=== PATIENT | female | born 1935 ===

== ENCOUNTER 2025-10-22 14:07 | Outpatient (AMB) | payer OTHER, SELFPAY ==
--- OUTSIDE RECORDS SUMMARY | 2025-10-22 13:33 | XMS_ITS ---
Author Organization [facility] ADVANCE DIRECTIVES Directive Description Date Supporting Docu ment(s) Advance care order Do Not Resuscitate O rder (DNR) Advance directive 10/30/2024 Kathy jennings Living Will.pdf (Kathy Valverde Living Will.pdf) SOCIAL HISTORY Social History Observation Description Sex Unknown Current Smoking Status Tobacco smoking c onsumption unknown
[2025-10-22 14:22] VITALS: BMI 25.3
--- NOTE | 2025-10-22 14:22 | A.PHYSOV ---
Vital Signs 10/22/25 14:22 Height 5 ft 4.5 in Weight 150 lb BMI 25.3 Intake Visit Reasons: Bilateral shoulder injections Intake Note: Patient is a 89 year old female here today for bilateral shoulder injections. Manager Multicultural Required: No Allergies No Known Allergies Allergy (Verified 10/22/25 14:25) [facility] Surgical History H/O tubal ligation Social History Alcohol intake: current Alcohol intake frequency: holidays/special occasions only Patient Tobacco Use Status: Never used Tobacco Physical Exam Vital Signs: BMI result Body Mass Index 25.3 Office Procedures AMB Shoulder Injection AMB Shoulder Injection Procedure Details: Bilateral Glenohumeral joint injection: The patient was educated about risks, complications and benefits including but not limited to increased serum glucose, infection, nerve damage, bleeding, tendon/ligament damage and pain. We agree with a glenohumeral injection is the next best step in the treatment plan. Verbal consent was obtained. Using aseptic technique, the skin was cleansed with Betadine. Ethyl chloride was used to desensitize the skin. Using a posterior approach on the left, 40 mg of Kenalog and 3 mL 2% lidocaine were injected using a 25-gauge inch and a half needle into the joint. The patient tolerated the procedure well without immediate complication. Postinjection instructions were given. The procedure was repeated on the right. Shoulder Injection - : Bilateral All charges added?: Procedure code (CPT) selection complete Office Meds Kenalog 40 mg/mL suspension for injection Performing Provider: PERI Robison Performing Location: [facility] Administered by: PERI Robison on 10/22/25 17:20 Dose Route Admin Location Dispensed Lot Number Expiration Date [facility] Water [employer] 40 mg intra-articular 1 mL [address]-9 [employer] Total Dispensed Waste 1 mL 0 % lidocaine (PF) 20 mg/mL (2 %) injection solution Performing Provider: PERI Robison [facility] Administered by: PERI Robison on 10/22/25 17:20 Dose Route Admin Location Dispensed Lot Number Expiration Date [facility] Water [employer] 60 mg intra-articular 5 mL [id number] [employer] Total Dispensed Waste 5 mL 40 % Assessment & Plan Assessment & Plan (1) Osteoarthritis of bilateral glenohumeral joints: Code(s): M19.011 - Primary osteoarthritis, right shoulder; M19.012 - Primary osteoarthritis, left shoulder Category: Medical Plan Ms. Chavez is a 89-year-old female seen in evaluation today for bilateral glenohumeral joint osteoarthritis. Today she consented to bilateral glenohumeral joint injection. She was given post-injection instructions, recommend: Moist heat compresses for 15 minutes up to 5 times daily. Continue her home exercise plan and medications as prescribed. Follow-up with our office in 3 months as needed. Thank you for allowing me to participate in the care of your patient. Orders: Orders AMB Shoulder Injection Today M19.011 - Primary osteoarthritis, right shoulder, M19.012 - Primary osteoarthritis, left shoulder Coding Level of Care Code Procedure Only Diagnoses Osteoarthritis of bilateral glenohumeral joints M19.011; M19.012 CPT Codes AMB Shoulder Injection - Hip/Bursa Injection - : Bilateral ([id number])
--- OUTSIDE RECORDS SUMMARY | 2025-10-22 18:54 | XMS_ITS | Continuity of Care Document ---
Author Organization [facility], Main Office Address [address] [place] [address] Care Team Providers Care Deckhand Maintenance Name Role Phone JONAH ABDULLAHI Lobby Attendant [facility] Director ANSHUL GARCIA Equipment Installer SUKHJINDER OJEDA Primary Care Provider Assessment No assessment recorded. Plan of Treatment Reminders Order Date Submit Date Provider Last Modified By Organization Details Last Modified Time Details Appointments None recorded. Lab None recorded. Referral None recorded. Procedures None recorded. Surgeries None recorded. Imaging None recorded. Medication Orders amlodipine 5 mg tablet 2024 025 [facility] #[id number], [address], [place], [address], 14:43:19 lisinopril 40 mg tablet 2024 025 [facility] #[id number], [address], [place], [address], 14:43:18 metoprolol succinate ER 25 mg tablet,exte nded release 24 hr 2024 025 [facility] #[id number], [address], [place], [address], 14:43:20 Patient TargetsNo targets recorded. Patient Instructions Encounter Date Encounter Id Patient Instructions Last Modified By Organization Details Last Modified Time 10/06/2025 [id number] high blood pressure: care instructions Not available 10/06/2025 14:43:15 learning about high blood pressure Not available 10/06/2025 14:43:15 atrial fibrillation: care instructions Not available 10/06/2025 14:43:15 medical record request* [email or web address] Not available 10/07/2025 10:06:03 Reason for Referral None Reported. Results Created Date Observation Date Name Description Value Unit Range Abnormal Flag Note LastModifiedBy Organization Detail LastModifiedTime 10/16/2010/14/2025 XR, hip + pelvi s, unila teral , 2 or 3 view AP pelvis and right hip 3 views dated 2024. Compar pranay films are from June 30, 2025. HISTOR Y: Right hip pain. FINDIN GS: This examin ation shows no eviden ce of fractu re or disloc ation. There is loss of joint space in both hips with minima l subcho ndral sclero sis and osteop hyte format ion. IMPRES ROSA: Degene rative change s. No eviden ce of fractu re or disloc ation. Thank you for allowi ng me to partic ipate in the care of this patien t. WSN: [id number] Orderi ng Physic igor: Divya Guillen Dictat ed By: Ge Cid MD Dictat ed Date/T gaby: 9:51 am Review ed By: Ge Cid MD Signed By: Ge Cid MD Signed Date/T gaby: 9:51 am Transc ribed By: AYDEE Transc ribed Date/T gaby: 9:51 am Patien t Class: Outpat ient [email or web address] (Outpt Imaging) [address], [place], [address], 10/20/2025 09:18:34 10/16/20 25 10/14/2025 XR, hip + pelvi s, unila teral , 2 or 3 view No observ ation record ed. [email or web address] [facility] [address] [place], [address], 10/20/2025 09:18:46 Result Notes None recorded. Problems Name Problem SNOMED Code Status Onset Date Resolution Date Notes Provider Name and Address Organization Details Recorded Time Respirat ory crackles 38785294 Completed 10/05/2016 Willow cunningham [facility] 6 11:47:07 Influenz a 8079566 Completed 10/05/2016 [facility] 6 11:47:10 Cough 82548248 Completed 10/05/2016 EMERSON Escobar [facility] 6 11:06:03 Otitis media 38098149 Completed 10/05/2016 EMERSON Escobar [facility] 6 11:06:08 Sinusiti s 09780524 Completed 10/05/2016 EMERSON Escobar [facility] 6 11:05:57 Diarrhea 75072167 Completed 10/05/2016 EMERSON Escobar [facility] 6 11:06:12 Stomach cramps 20167763 Completed 10/05/2016 EMERSON Escobar [facility] 6 11:06:16 Clostrid ium difficil e colitis 229260009 Completed 10/06/2017 Willow cunningham [facility] 7 11:31:32 Abdomina l pain 23063663 Completed 10/06/2017 EMERSON Escobar [facility] 7 11:04:19 Clostrid ioides difficil e infectio n 695971609 Completed 07/22/2024 SUKHJINDER OJEDA MD [address], [place], [address] , [facility] 4 07:25:47 Hypercho lesterol emia 56862197 Completed 08/04/2021 Willow LaoSelena cunningham [facility] 1 14:08:56 Advance care planning Active Not Available [facility] 3 13:25:11 Acute secretor y otitis media 174182566 Completed 200805/27/2014 IMPRESSI ON: RIGHT TM ALSO WITH SINUSITI S; RECORDED 12/11/19 09 1:21PM BY QUAN ADAMSATI ON/ADDEN DUM Not Available [facility] 4 15:10:13 General examinat ion of patient Completed 200805/27/2014 IMPRESSI ON: PAP, MAMMO AND COLONOSC OPY UTD AND NL, EXERCISE S DAILY; RECORDED 12/11/19 09 1:21PM BY QUAN ADAMSATI ON/ADDEN DUM Not Available [facility] 4 15:10:14 Malaise and fatigue 183260152 Completed 200805/27/2014 RECORDED 12/11/19 09 2:16PM BY QUAN CHAPMANATI ON/ADDEN DUM Not Available [facility] 4 15:10:14 Acute secretor y otitis media 011727913 Completed 200806/16/2014 IMPRESSI ON: RIGHT TM ALSO WITH SINUSITI S; RECORDED 12/11/19 09 1:21PM BY QUAN ADAMSATI ON/ADDEN DUM Not Available [facility] 4 07:01:51 General examinat ion of patient Completed 200806/16/2014 IMPRESSI ON: PAP, MAMMO AND COLONOSC OPY UTD AND NL, EXERCISE S DAILY; RECORDED 12/11/19 09 1:21PM BY QUAN ADAMSATI ON/ADDEN DUM Not Available [facility] 4 07:01:51 Malaise and fatigue 311711364 Completed 200806/16/2014 RECORDED 12/11/19 09 2:16PM BY QUAN CHAPMANATI ON/ADDEN DUM Not Available [facility] 4 07:01:51 Screenin g for malignan t neoplasm of colon Completed 200805/27/2014 RECORDED 06/10/20 09 2:02PM BY EMERSON BROCK, ANNOTATI ON/ADDEN DUM Not Available [facility] 4 15:10:15 Screenin g for malignan t neoplasm of colon Completed 200806/16/2014 RECORDED 06/10/20 09 2:02PM BY EMERSON BROCK, ANNOTATI ON/ADDEN DUM Not Available [facility] 4 07:01:51 Active or passive immuniza tion Completed 200905/27/2014 RECORDED 11/12/19 10 1:42PM BY WILLOW Ordonez MD, OFFICE VISIT Not Available [facility] 4 15:10:14 Active or passive immuniza tion Completed 200906/16/2014 RECORDED 11/12/19 10 1:42PM BY WILLOW Ordonez MD, OFFICE VISIT Not Available [facility] 4 07:01:51 Influenz a vaccine needed [id number] 06 Completed 200905/27/2014 DATE: 07/28/20 10; RECORDED 11/12/19 13 11:19AM BY BILLY ESCOBAR ON/ADDEN DUM EMERSON Escobar, [facility] 6 11:05:45 Administ ration of viral vaccine Completed 200905/27/2014 DATE: 07/28/20 10; RECORDED 11/12/19 13 11:20AM BY BILLY ESCOBAR ON/ADDEN DUM Not Available [facility] 4 15:10:14 Influenz a vaccine needed 16000728401 06 Completed 200906/16/2014 DATE: 07/28/20 10; RECORDED 11/12/19 13 11:19AM BY BILLY ESCOBAR ON/ADDEN DUM EMERSON Escobar, [facility] 6 11:05:45 Administ ration of viral vaccine Completed 200906/16/2014 DATE: 07/28/20 10; RECORDED 11/12/19 13 11:20AM BY BILLY ESCOBAR ON/ADDEN DUM Not Available [facility] 4 07:01:51 Screenin g for malignan t neoplasm of breast Completed 201205/27/2014 RECORDED 11/12/19 13 11:19AM BY BILLY ESCOBAR ON/ADDEN DUM EMERSON Escobar, [facility] 7 11:04:35 Elevated blood-pr essure reading without diagnosi s of hyperten rosa 636191004 Completed 201205/27/2014 RECORDED 11/12/19 13 11:19AM BY BILLY ESCOBAR ON/ADDEN DUM Not Available [facility] 4 15:10:14 Essentia l hyperten rosa 07164085 Completed 201205/27/2014 RECORDED 11/12/19 13 11:19AM BY BILLY ESCOBAR ON/ADDEN DUM EMERSON Ibanez, [facility] 0 10:01:52 Adult health examinat ion Completed 201205/27/2014 IMPRESSI ON: PAP AND MAMMOT UTD, RESTART EXERCISE LOWER PORTIONS ; RECORDED 11/12/19 13 11:19AM BY BILLY ESCOBAR ON/ADDEN DUM EMERSON Escobar, [facility] 6 11:05:52 Screenin g for malignan t neoplasm of breast Completed 201206/16/2014 RECORDED 11/12/19 13 11:19AM BY BILLY ESCOBAR ON/ADDEN DUM EMERSON Escobar, [facility] 7 11:04:35 Elevated blood-pr essure reading without diagnosi s of hyperten rosa 792298419 Completed 201206/16/2014 RECORDED 11/12/19 13 11:19AM BY BILLY ESCOBAR ON/ADDEN DUM Not Available [facility] 4 07:01:51 Spontane ous ecchymos is 879700722 Completed 201205/27/2014 RECORDED 10/23/20 13 11:13AM BY GIOVANY DANNIE, [place], ANNOTATI ON/ADDEN DUM Not Available [facility] 4 15:10:13 Closed fracture of foot 882014173 Completed 201205/27/2014 IMPRESSI ON: WITH WALKING, CONTINUE WSEARING WALKING BOOT; RECORDED 10/23/20 13 11:13AM BY GIOVANY PANDEY MA, ANNOTATI ON/ADDEN DUM Not Available [facility] 4 15:10:14 Administ ration of tetanus vaccine Completed 201205/27/2014 RECORDED 10/23/20 13 11:13AM BY GIOVANY PANDEY [place], ANNOTATI ON/ADDEN DUM Not Available [facility] 4 15:10:15 Joint pain in ankle and foot Completed 201205/27/2014 RECORDED 10/23/20 13 11:13AM BY GIOVANY PANDEY MA, ANNOTATI ON/ADDEN DUM Not Available [facility] 4 15:10:15 Rosacea 087389038 Completed 201205/27/2014 RECORDED 10/23/20 13 11:13AM BY GIOVANY PANDEY [place], ANNOTATI ON/ADDEN DUM EMERSON Ibanez [place] - [facility] 0 10:02:02 Adult health examinat ion Completed 201210/05/2016 IMPRESSI ON: PAP, MAMMO AND COLONOSC OPY UTD AND ALL NL, PT IS ACITVE , EXERCISE S AND FEELS WELL.IS ON CALCIUM AND VITAMIN D; RECORDED 10/23/20 13 12:06PM BY WILLOW Ordonez MD, OFFICE VISIT EMERSON Escobar PA Louann [facility] 6 11:05:52 Spontane ous ecchymos is [id number] Completed 201206/16/2014 RECORDED 10/23/20 13 11:13AM BY GIOVANY PANDEY MA, ANNOTATI ON/ADDEN DUM Not Available [facility] 4 07:01:51 Closed fracture of foot 216828007 Completed 201206/16/2014 IMPRESSI ON: WITH WALKING, CONTINUE WSEARING WALKING BOOT; RECORDED 10/23/20 13 11:13AM BY GIOVANY PANDEY MA, ANNOTATI ON/ADDEN DUM Not Available [facility] 4 07:01:51 Administ ration of tetanus vaccine Completed 201206/16/2014 RECORDED 10/23/20 13 11:13AM BY GIOVANY PANDEY MA, ANNOTATI ON/ADDEN DUM Not Available [facility] 4 07:01:51 Joint pain in ankle and foot Completed 201206/16/2014 RECORDED 10/23/20 13 11:13AM BY GIOVANY PANDEY MA, ANNOTATI ON/ADDEN DUM Not Available [facility] 4 07:01:51 Portillo [id number] Completed 201206/16/2014 RECORDED 10/23/20 13 11:13AM BY GIOVANY PANDEY MA, ANNOTATI ON/ADDEN DUM EMERSON Ibanez [facility] 0 10:02:02 Patient status finding [id number] Completed 201310/05/2016 RECORDED 04/03/20 14 11:48AM BY CLAIRE BILLY, OFFICE VISIT EMERSON Escobar [facility] 6 11:05:41 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 e 801140165 Completed 201310/06/2017 IMPRESSI ON: ON ACTONEL, VIT D AND CALCIUM CONTINUE ; RECORDED 04/03/20 14 11:42AM BY CLAIRE BILLY, OFFICE VISIT Willow cunningham [facility] 7 11:32:01 Essentia l hyperten rosa 10755356 Active 2013 Not Available [facility] 3 13:25:11 Influenz a vaccine needed 07645351941 06 Completed 201310/05/2016 RECORDED 04/03/20 14 11:42AM BY CLAIRE BILLY, OFFICE VISIT EMERSON Escobar [facility] 6 11:05:45 Herpes zoster 0167933 Completed 201304/02/2025 SUKHJINDER OJEDA MD [address], [facility] [place], [address] , [facility] 5 07:12:10 Pure hypercho lesterol emia 702382532 Completed 201310/06/2017 IMPRESSI ON: CHECK FASTING; RECORDED 04/03/20 14 11:42AM BY CLAIRE BILLY, OFFICE VISIT Willow cunningham [facility] 7 11:31:28 Screenin g for malignan t neoplasm of breast Completed 201310/06/2017 RECORDED 04/03/20 14 11:42AM BY CLAIRE BILLY, OFFICE VISIT EMERSON Escobar, [facility] 7 11:04:35 Rosacea 520867320 Active 2013 Not Available [facility] 3 13:25:10 Adult health examinat ion Completed 201306/16/2014 IMPRESSI ON: PAP, MAMMO AND COLONOSC OPY UTD AND ALL NL, PT IS ACITVE , EXERCISE S AND FEELS WELL.IS ON CALCIUM AND VITAMIN D; RECORDED 04/03/20 14 11:38AM BY BILLY ESCOBAR ON/ADDEN DUM EMERSON Escobar, [facility] 6 11:05:52 Advance directiv e discusse d with patient 483390115 Completed 201910/26/2020 EMERSON Ibanez, [facility] 0 10:02:08 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 Not Available [facility] 3 13:25:10 Chronic kidney disease stage 3 440728811 Completed 202008/04/2021 Willow cunningham, [facility] 1 14:09:00 Atrial fibrilla tion 56254798 Active 2021 Not Available [facility] 3 13:25:10 Hyperten rosa monitori ng status 605155620 Active 2021 [facility] - active Not Available [facility] 3 13:25:10 COVID-19 749512154 Completed 202101/25/2024 SUKHJINDER OJEDA MD [address], [place], [address] , [facility] 4 07:21:29 Osteopen ia 437136645 Active 2024 SUKHJINDER OJEDA MD [address], [place], [address] , [facility] 5 20:07:29 Chronic low back pain 795854677 Active 2024 Lenny Diaz PA-C [address], [place], [address] , [facility] 5 12:38:53 Problem Notes None recorded. Procedures Surgical History Date Name Laterality Status Provider Name and Address Organization Details Recorded Time 5 Most Recent Mammogram completed Naomi Sharma [facility] 05/06/2025 13:49:19 5 Mammogram screening completed Naomi Sharma [facility] 05/06/2025 13:48:36 5 Advanced Care Planning completed SUKHJINDER OJEDA MD [address], [place], [address], [facility] 04/02/2025 07:10:42 4 Mammogram Diagnostic Bilateral completed Carola Hannon [facility] 03/26/2024 15:28:17 0 Six-Item Cognitive Test completed Claire Billy MA [facility] 04/23/2020 14:43:36 9 Mammogram one breast completed Cristiana Palma [facility] 03/20/2019 15:00:31 8 Date of Last Pap Smear completed Claire Billy MA [facility] 08/29/2018 08:53:19 7 Fall Risk Assessment completed Claire Billy EMERSON [facility] 10/06/2017 11:12:29 7 Mini-Cog Test completed Claire Henry EMERSON [facility] 10/06/2017 11:12:01 7 Advanced Care Planning completed Willow saunders [facility] 10/06/2017 11:30:30 6 Fall Risk Assessment completed Claire Billy EMERSON [facility] 10/05/2016 11:12:30 6 Mini-Cog Test completed Clairecamille Billy EMERSON [facility] 10/05/2016 11:11:27 6 Advanced Care Planning completed Willow saunders [facility] 10/05/2016 12:00:31 5 Fall Risk Assessment completed Claire Billy EMERSON [facility] 09/28/2015 10:34:57 5 Mini-Cog Test completed Claire Henry EMERSON [facility] 09/28/2015 10:37:39 Imaging Results None recorded. Procedure Notes None recorded. Medical Equipment None Reported. Allergies No known drug allergies Medications Name Sig Start Date Stop Date Status Note LastModified by Organization Details LastModified Time furosemid e 40 mg tablet TAKE 1 TABLET BY MOUTH EVERY DAY active Not Available Not Available No t Available tizanidin e 2 mg tablet TAKE 1 TABLET BY MOUTH NEEDED AT BEDTIME FOR 10 DAYS active Not Available Not Available No t Available cephalexi n 250 mg capsule 10/05 completed Not Available Not Available Not Available prednison e 20 mg tablet Take 2 tablets every day by oral route for 5 days. 03/12 completed Not Available Not Available Not Available doxycycli ne hyclate 50 mg capsule BID 11/15 completed RECORDED 11/15/19 11 10:59AM BY CLAIRE BILLY, OFFICE VISIT;DR Sulaiman JAUREGUI Not Available Not Available Not Available metronida zole 500 mg tablet Take 1 tablet 3 times a day by oral route for 14 days. active Not Available Not Available No t Available amlodipin e 5 mg tablet TAKE 1 TABLET BY MOUTH ONCE DAILY DIRECTED 2024 active Not Available Not Available Not Avai lable Tamiflu 75 mg capsule Take 1 capsule twice a day by oral route for 5 days. active Not Available Not Available No t Available Tessalon Perles 100 mg capsule Take 1 capsule 3 times a day by oral route for 3 days. 10/20 completed Not Available Not Available Not Available amoxicill in 875 mg tablet BID 07/04 completed RECORDED 07/04/20 07 9:42AM BY WILLOW Ordonez MD, MEDICATI ON AUTO-SIN CTIVATIO N; Not Available Not Available Not Available potassium chloride ER 20 mEq tablet,ex tended release(p art/cryst ) 07/22 completed Not Available Not Available Not Available metronida zole 0.75 % lotion Q AM active RECORDED 10/23/20 13 11:13AM BY GIOVANY PANDEY MA, OFFICE VISIT; Not Available Not Available Not Available codeine 10 mg-guaife nesin 100 mg/5 mL oral liquid Take 5-10 ml EVERY 4 HOURS as needed for cough. caution drowsine ss 2014 active Not Available Not Available Not Avai lable hydrochlo rothiazid e 25 mg tablet Take 1 tablet by mouth once daily 01/25 completed 024 Not taking? Not Available Not Available Not Available gabapenti n 100 mg capsule TAKE 2 CAPSULES BY MOUTH EVERY DAY AT BEDTIME 07/16 completed Not Available Not Available Not Available metoprolo l succinate ER 25 mg tablet,ex tended release 24 hr TAKE 1 TABLET BY MOUTH DAILY FOR 90 DAYS DO NOT CRUSH OR CHEW CALL IF SIGNIFIC ANT LIGHTHEA DNESS 2024 active Not Available Not Available Not Avai lable levofloxa cherie 750 mg tablet Take 1 tablet every day by oral route as directed for 7 days. 03/14 completed Not Available Not Available Not Available methylpre dnisolone 4 mg tablets in a dose pack TAKE BY ORAL ROUTE PER PACKAGE INSTRUCT IONS TAPERING DOSE. 07/16 completed Not Available Not Available Not Available lisinopri l 40 mg tablet TAKE 1 TABLET BY MOUTH ONCE DAILY DIRECTED 2024 active Not Available Not Available Not Avai lable fluticaso ne propionat e 50 mcg/actua tion nasal spray,[facility] [employer] USE 1 SPRAY IN EACH NOSTRIL ONCE DAILY FOR 60 DAYS 2024 active Not Available Not Available Not Avai lable doxycycli ne hyclate 100 mg tablet Take 1 tablet twice a day by oral route for 21 days. 10/06 completed Not Available Not Available Not Available amoxicill in 875 mg-potass ium clavulana te 125 mg tablet Take 1 tablet every 12 hours by oral route for 14 days. active Not Available Not Available No t Available cholecalc iferol (vitamin D3) 25 mcg (1,000 unit) capsule Take 1 capsule every day by oral route. active Not Available Not Available No t Available Adult Aspirin 81 mg tablet Take 1 tablet every day by oral route. 10/20 completed Not Available Not Available Not Available Finacea 15 % topical gel BID 11/15 completed RECORDED 11/15/19 11 10:59AM BY CLAIRE BILLY, OFFICE VISIT; Not Available Not Available Not Available Multivita min 50 Plus tablet Take 1 tablet every day by oral route. active Not Available Not Available No t Available Centrum Silver DAILY po 10/26 completed Not Available Not Available Not Available Centrum 06/25 completed Not Available Not Available Not Available Zostavax (PF) 19,400 unit/0.65 mL subcutane ous suspensio n CHARLETTE X 1 11/17 completed RECORDED 01/24/20 12 1:40PM BY WILLOW Ordonez MD, MEDICATI ON AUTO-SIN CTIVATIO N; Not Available Not Available Not Available Actonel 150 mg tablet once a month 2013 active Not Available Not Available Not Avai lable GaviLyte- G 236 gram-22.7 4 gram-6.74 gram-5.86 gram oral solution 03/14 completed Not Available Not Available Not Available Probiotic 1 qd 10/26 completed Not Available Not Available Not Available Eliquis 5 mg tablet TAKE 1 TABLET BY MOUTH TWICE A DAY active Not Available Not Available No t Available potassium chloride ER 20 mEq tablet,ex tended release TAKE 1 TABLET BY MOUTH EVERY DAY FOR 30 DAYS 07/23 completed Not Available Not Available Not Available Probiotic 100 billion cell capsule Take 1 capsule every day by oral route. active Not Available Not Available No t Available Fluzone High-Dose (PF) 180 mcg/0.5 mL intramusc ular syringe 04/23 completed Not Available Not Available Not Available Voltaren Arthritis Pain 1 % topical gel APPLY 2 GRAMS TO THE AFFECTED AREA(S) BY TOPICAL ROUTE 2 TIMES PER DAY 2024 active Not Available Not Available Not Avai lable Fluzone High-Dose Quad (PF) 240 mcg/0.7 mL IM syringe 10/26 completed Not Available Not Available Not Available Paxlovid 300 mg (150 mg x 2)-100 mg tablets in a dose pack TAKE 2 TABLETS BY MOUTH TWICE DAILY FOR 5 DAYS 10/20 completed Not Available Not Available Not Available Paxlovid 150 mg-100 mg tablets in a dose pack (Moderate Renal Dose) Take 1 tablet twice a day by oral route for 5 days. 10/20 completed Not Available Not Available Not Available Vitals Date Recorded Heart rate Provider Name an d Address Organization Details Last Updated DateTime 10/06/2025 97 /min SUKHJINDER Oliva MD [address], [address], [facility] 10/06/2025 14:52:39 Date Recorded Body height Body mass index (BMI) Body weight Heart rate Oxygen saturation Body temperature Systolic And Diastolic Systolic And Diastolic Provider Name and Address Organization Details Last Updated DateTime 5 162.56 cm 25.7 kg/m2 31386.8 6 g 106 /min 96 % 98.1 [degF] 142/84 mm[Hg] 140/80 mm[Hg] Charleen Bernal MA [facility] 5 14:24:15 Social History Question Answer Notes LastModified by Organizat ion Details LastModified Time Tobacco Smoking Status Never Smoker Claire Billy MA null, [facility] 09/04/2014 10:59:10 Is Blood Transfusion Acceptable In An Emergency? Yes [email or web address] Information not available 09/28/2015 What Is Your Level Of Caffeine Consumption? Occasional [email or web address] Information not available 09/04/2014 What Type Of Diet Are You Following? REGULAR [email or web address] Information not available 09/04/2014 Live Alone Or With Others? With Others [email or web address] Information not available 09/04/2014 Do You Take Precautions To Prevent Distracted Driving? Yes [email or web address] Information not available 09/28/2015 How Often Do You Need To Have Someone Help You When You Read Instructions, Pamphlets, Or Other Written Material From Your Doctor Or Pharmacy? Sometimes [email or web address] Information not available 09/28/2015 Have You Served In The ? No [email or web address] Information not available 04/23/2020 Have You Or Anyone In Your Household Had Any Of The Following Symptoms In The Last 14 Days: Sore Throat, Cough, Chills, Body Aches For Unknown Reasons, Shortness Of Breath For Unknown Reasons, Loss Of Smell, Loss Of Taste, Fever At Or Greater Than 100 Degrees Fahrenheit? No Information not available 10/26/2020 Are You Or Anyone In Your Household A Health Care Provider Or Emergency Responder? No Information not available 10/26/2020 To The Best Of Your Knowledge Have You Been In Close Proximity To Any Individual Who Tested Positive For COVID-19? No Information not available 10/26/2020 *AWV ONLY* Are You Presently Prescribed Opioid Medication By PCP Or Specialist? If YES -Provider Assess The Benefit For Other, Non-opioid Pain Therapies Instead, Even If The Patient Does Not Have OUD But Is Possibly At Risk. No [email or web address] Information not available 08/04/2021 Have You Recently Traveled To A COVID-19 High Risk Area Or Gathering In The Last 10 Days? No [email or web address] Information not available 08/04/2021 What Was The Date Of Your Most Recent Tobacco Screening? 10/14/2025 Information not available 10/14/2025 What Is Your Relationship Status? [email or web address] Information not available 09/28/2015 Seat Belts Used Routinely Yes [email or web address] Information not available 09/04/2014 Smoke Alarm In Home Yes [email or web address] Information not available 09/04/2014 How Much Tobacco Do You Smoke? No Information not available 08/29/2018 General Stress Level Medium [email or web address] Information not available 09/04/2014 Do You Use Sunscreen Routinely? Yes [email or web address] Information not available 09/04/2014 How Many Years Have You Smoked Tobacco? 0 Information not available 08/29/2018 Sex: Unknown Functional Status Question Answer Note LastModified by Organizat ion Details LastModified Time Do you use any illicit or recreational drugs? No Information not available 10/14/2025 Do you or have you ever used any other forms of tobacco or nicotine? No Information not available 10/14/2025 What is your level of alcohol consumption? Occasional [email or web address] Information not available 09/04/2014 Do you or have you ever used smokeless tobacco? Never used smokeless tobacco [email or web address] Information not available 04/23/2020 Are you currently employed? No Information not available 10/14/2025 Are you able to walk independently without assistance or assistive devices? YESWOREST [email or web address] Information not available 08/04/2021 Are you able to care for yourself independently? Yes Information not available 09/04/2014 Do you or have you ever used e-cigarettes or vape? Never used electronic cigarettes Information not available 04/23/2020 What is your exercise level? Occasional [email or web address] Information not available 08/04/2021 Mental Status None recorded. Family History Relationship Description Onset Age of this Age Resolved Age Notes LastModified by Organization Details LastModified Time Father Heart disease [email or web address] Not available 05/2015 11:58:22 Mother Carcinoma in situ of breast [email or web address] Not available 05/2015 11:58:22 Notes:No FH of colon cancer Medical History Condition Response Coronary Artery Disease N Other Y Gout N Kidney Stones N Blood Diseases N Hyperthyroidism N Breast Cancer N mrsa exposure N Hypothyroidism N Depression N COPD N Lung Disease N Developmental or Behavioral Disorders N Defects or Inherited Disease N Breast Problem N Anesthesia Complications N Headaches/Migraines N Varicose Veins N Anxiety Disorder N Muscle, Joint, or Bone Problems N Obesity N Vision or Eye Problems N Arthritis Y Head Injury/Concussion N Polyps N Infertility N Mental Disorder N Congenital Anomalies N Acid Reflux (GERD) N Cancer N Stroke N ADHD N Endometriosis N High Cholesterol Y Liver Disease N Headaches N Fibromyalgia N Kidney Disease N Heart Problems N Ear or Hearing Problems N Hospitalizations N Thyroid Problems N GI Problems N Developmental Delay N Acne N Skin Problems N Eating Disorder N Anemia N Constipation N Bladder Problems N Mental Illness N Ovarian Cancer N Diabetes N Bedwetting N Blood Transfusions N Seizures/Epilepsy N Heart Problems/Murmur N Tuberculosis N AIDS/HIV N Congestive Heart Failure (CHF) N Eczema N Diverticulitis N Abuse/Domestic Violence N Asthma N Allergies N Reflux/GERD N Hepatitis N Heart Disease Y Pulmonary Embolism N Hypertension Y Chicken Pox N Autism Spectrum Disorder (ASD) N Osteoporosis N Gynecological History Statement/Question Response Date of Last Pap Smear 08/27/2018 Date of Last Colonoscopy Most Recent Mammogram 05/02/2025 Obstetrics History GPAL:G 0 P 0 0 0 0 Immunizations Vaccine Type Date Status Note Provider Nam e and Address Organization Details Recorded Time COVID-19, mRNA, LNP-S, PF, 30 mcg/0.3 mL dose 1 completed Vivien cunningham [facility] 08/10/2023 14:11:15 COVID-19, mRNA, LNP-S, PF, 30 mcg/0.3 mL dose 1 completed Vivien cunningham [facility] 08/10/2023 14:11:15 COVID-19, mRNA, LNP-S, PF, 30 mcg/0.3 mL dose 1 completed Vivien cunningham [facility] 08/10/2023 14:11:16 Influenza, high-dose, quadrivalent, PF 0 completed Vivien cunningham [facility] 08/10/2023 14:11:15 Influenza, high-dose, trivalent, PF 0 completed Vivien cunningham [facility] 08/10/2023 14:11:16 Influenza, split virus, quadrivalent, PF 5 completed Not Available [facility] 11/23/2019 02:22:02 Influenza, high-dose, trivalent, PF 6 completed Vivien Garibay null, [facility] 08/10/2023 14:11:16 Influenza, high-dose, trivalent, PF 8 completed Vivien Garibay null, [facility] 08/10/2023 14:11:16 Influenza, high-dose, trivalent, PF 7 completed Vivien Garibay null, [facility] 08/10/2023 14:11:16 Influenza, high-dose, quadrivalent, PF 1 completed Vivien Garibay null, [facility] 08/10/2023 14:11:15 Influenza, split virus, trivalent, PF 4 completed Vivien Garibay null, [facility] 08/10/2023 14:11:16 Pneumococcal conjugate PCV 13 6 completed Vivien Garibay null, [facility] 08/10/2023 14:11:16 Influenza, high-dose, quadrivalent, PF 2 completed Vivien Garibay null, [facility] 08/10/2023 14:11:15 Influenza, adjuvanted, quadrivalent, PF 3 completed EMERSON Escobar, [facility] 07/23/2024 13:21:54 COVID-19, mRNA, LNP-S, bivalent, PF, 30 mcg/0.3 mL dose 3 completed EMERSON Escobar, [facility] 07/23/2024 13:21:54 COVID-19, mRNA, LNP-S, PF, 50 mcg/0.5 mL 3 completed EMERSON Escobar, [facility] 07/23/2024 13:21:54 COVID-19, mRNA, LNP-S, PF, 50 mcg/0.5 mL 4 completed EMERSON Goodman, [facility] 02/28/2025 13:12:25 Pneumococcal conjugate PCV21, polysaccharide [id number] conjugate, PF 5 completed Cris cunningham, [facility] 10/06/2025 13:53:21 COVID-19, mRNA, LNP-S, PF, 10 mcg/0.2 mL 5 completed Not Available [facility] 10/14/2025 14:06:28 Influenza, high-dose, trivalent, PF 5 completed Not Available [facility] 10/14/2025 14:06:28 Influenza, split virus, trivalent, preservative 8 completed Vivien cunningham, [facility] 08/10/2023 14:11:16 Influenza, split virus, trivalent, preservative 9 completed Vivien cunningham, [facility] 08/10/2023 14:11:16 pneumococcal polysaccharide PPV23 0 completed Vivien cunningham, [facility] 08/10/2023 14:11:16 Influenza, split virus, trivalent, preservative 0 completed Vivien cunningham, [facility] 08/10/2023 14:11:16 Influenza, split virus, trivalent, preservative 1 completed Vivien cunningham, [facility] 08/10/2023 14:11:16 Td (adult), 2 Lf tetanus toxoid, preservative free, adsorbed 2 completed Vivien cunningham, [facility] 08/10/2023 14:11:16 zoster live 2 completed Vivien Garibay null, [facility] 08/10/2023 14:11:16 zoster live 2 completed Vivien cunningham, [facility] 08/10/2023 14:11:16 Influenza, split virus, trivalent, preservative 2 completed Vivien Garibay null, [facility] 08/10/2023 14:11:16 Influenza, split virus, trivalent, preservative 3 completed Vivien Garibay null, [facility] 08/10/2023 14:11:16 Td (adult), 2 Lf tetanus toxoid, preservative free, adsorbed 2 completed Willow pate null, [facility] 10/20/2022 15:35:35 Influenza, high-dose, trivalent, PF 4 completed Claire Billy MA null, [facility] 07/23/2024 13:36:20 Past Encounters Encounter ID Performer Location Encounter Start Date Encounter Closed Date Diagnosis/Indication Diagnosis SNOMED-CT Code Diagnosis ICD10 Code Diagnosis IMO Codes Diagnosis Note [id number] SUKHJINDER OJEDA MD Main Office [address] [place] [address] 10/06/2025 14:15:52 10/06/2025 14:44:29 Atrial fibrillation [id number] I48.91 - diagnosed in 02/2022- pt is following with cardiology , last seen on 07/2025 -> no change in regimen, will request note- c/w metoprolol succinate ER 25mg QD- pt is also on eliquis 5mg BID> CHADVASc score is 4//HASBLEE D score of 1> bleeding risk does not outweigh risk of possible stroke or CARY in the future- echocardio gram done on 03/16/2022 which showed Ejection fraction 55 to 65% with mild to moderate aortic regurgitat ion, mild to moderate mitral regurgitat ion, moderate tricuspid regurgitat ion and mild pulmonary hypertensi on with PA systolic pressure 35 to 40 mmHg.- no current bleeding risks Essential hypertension 91476561 I10 - slightly elevated today- BP today 142/84 and on repeat 140/80- pt is on [employer] , BP at home average for September was 131/80- c/w amlodipine 5mg QD, lisinopril 40mg, furosemide 40mg, and metoprolol succinate 25mg QD> pt is on potassium supplement ation> HCTZ was stopped and switched to furosemide from cardio Pt counselled on:-Dietar y Approaches to Stop Hypertensi on (DASH) is an eating plan rich in fruits, vegetables , whole grains, fish, poultry, nuts, legumes, and low-fat dairy. These foods are high in rea nutrients such as potassium, magnesium, calcium, fiber, and protein.-A dvised continued adherence to medication s and low salt diet - extensive counsellin g done regarding dietary habits.-En couraged regular aerobic exercise 30 min for 4-5 x week.-BP monitoring at home advised to bring log at every visit-Side -effects of high BP can cause Stroke, Heart attack and even d/w pt-D/w pt when to call 911 or reach out to Health care provider:> Think you are having a reaction to a medicine you are taking.>Cary ve headaches that keep coming back (recurring ).>Feel dizzy.>Hav e swelling in your ankles.>Cary ve trouble with your vision. 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 [id number] - bilateral but worse on the rigth- pt following with physiatry, last seen on 07/22/2025> pt was given steroid injection> she will reach back out for possible repeat steroid injection Health Concerns Section Related Observation LastModified by Organization Detai ls LastModified Time None Recorded Concern Status LastModified by Organization Details LastModified Time None Recorded Payers Encounter Date Sequence Insurance Name Policy Number Policy Ricketts Covered Member ID Ricketts Member ID Guarantor Name 10/06/2025 1 [employer] - MEDICARE ADVANTAGE PLAN (MEDICARE REPLACEMENT HMO) [id number] Demetra Chavez [id number] Demetra Chavez Notes Date Note Type Note Provider Name and Address Organization Details Recorded Time 10/06/2025 text/html Hypertension F/UReported by PatientHPIFor lifestyle, patient reportsnot exercising regularlybut reportslimiting/manuel iding salt. For associated symptoms, patient reportsno dizziness,no lightheadedness,no chest pain,no shortness of breath,no palpitations,no edema, andno calf pain with exertion. For medications, patient reportstaking medications as directedandno side effects from medication. Demetra Chavez is a 89 year old F who presented to the clinic for follow-up on her chronic conditions. Patient has no complaints at this time. Patient presents with her daughter. SUKHJINDER OJEDA MD [address] [address], [place], [address], [facility] 10/06/2025 14:58:26 OBGyn Episode No OBEpisode recorded.
--- OUTSIDE RECORDS SUMMARY | 2025-10-22 18:54 | XMS_ITS | Continuity of Care Document ---
Author Organization [facility], Main Office Address [address] [address] [place] [address] Care Team Providers Care Malt Loader Name Role Phone JONAH ABDULLAHI Primary Teaching Assistant SANA KOHLI Private Client Advisor ANSHUL GARCIA Meat Team Lead SUKHJINDER OJEDA Primary Care Provider Assessment Encounter Date Assessment Date Assessment LastModified by Organization Details LastModified Time 10/14/2025 10/14/2025 1. Right Hip Portia n -Clinical findings (lateral hip tenderness, positive WILMER, positive Trendelenburg, positive resistive external derotation test) are most consistent with: -Greater trochanteric bursitis, and -Gluteal/hip abductor tendinopathy (hip tendonitis). -No exam findings suggestive of intra-articular pathology, piriformis syndrome, or hernia. Plan Diagnostics: -Order X-ray of the right hip and pelvis to rule out structural abnormalities. Conservative Management: -Begin physical therapy if the X-ray is reassuring. -Continue warm compresses to the affected area. -Initiate Voltaren (diclofenac) topical gel, instructing patient to apply only to the lateral hip, avoiding areas close to the groin or rectum. -Avoid oral NSAIDs due to current anticoagulation. Referrals: -Orthopedics referral placed, as patient may benefit from corticosteroid injection for symptom relief. -Discussed risks associated with frequent steroid injections, especially given patient s history of receiving injections in the shoulders. Education / Safety: -Provided home exercises for trochanteric bursitis. -Reviewed signs and symptoms that should prompt emergency evaluation (e.g., severe worsening pain, fever, inability to bear weight, new neurological deficits). -Patient and family expressed understanding and agreement with the plan. Follow-Up: -Patient to follow up with orthopedics if symptoms persist or worsen. -Return to clinic sooner if new or concerning symptoms develop. felipe Not available 10/14/2025 21:48:11 Plan of Treatment Reminders Order Date Submit Date Provider Last Modified By Organization Details Last Modified Time Details Appointments None recorded. Lab None recorded. Referral physical therapist referral 2024 025 Not available 14:59:35 orthopedic surgeon referral 2024 025 [email or web address] [facility], [address], [place], [address], 16:55:53 Procedures None recorded. Surgeries None recorded. Imaging XR, hip + pelvis, unilateral, 2 or 3 view 2024 [facility], [address] [place], [address], 09:54:44 Medication Orders Voltaren Arthritis Pain 1 % topical gel 2024 [id number], [address], [place], [address], 14:54:30 Patient TargetsNo targets recorded. Patient Instructions Encounter Date Encounter Id Patient Instructions Last Modified By Organization Details Last Modified Time 10/14/2025 [id number] hip pain: care instructions felipe Not available 10/14/2025 14:51:16 trochanteric bursitis: exercises [email or web address] Not available 10/14/2025 14:52:29 Reason for Referral Physical Therapist Referral for Pain of hip region Referring Physician: Nuris Guillen, Family Medicine, Encounter Date: 10/14/2025 Orthopedic Surgeon Referral for Pain of hip region Referring Physician: Nuris Guillen Family Medicine, Encounter Date: 10/14/2025 Results Created Date Observation Date Name Description Value Unit Range Abnormal Flag Note LastModifiedBy Organization Detail LastModifiedTime 10/16/2010/14/2025 XR, hip + pelvi s, unila teral , 2 or 3 view AP pelvis and right hip 3 views dated Septem 2024. Compar pranay films are from June [...] re or disloc ation. Thank you for neili oscar me to partic ipate in the care of this patien t. WSN: [id number] Orderi oscar Physic igor: Divya Guillen Dictat ed By: Ge Cid MD Dictat ed Date/T gaby: 9:51 am Review ed By: Ge Cid MD Signed By: Ge Cid MD Signed Date/T gaby: 9:51 am Transc ribed By: AYDEE Transc ribed Date/T gaby: 9:51 am Patien t Class: Outpat ient [email or web address] [facility] (Outpt Imaging) [address] [place], [address], 10/20/2025 09:18:34 10/16/2010/14/2025 XR, hip + pelvi s, unila teral , 2 or 3 view No observ ation record ed. [email or web address] [facility] [address] [place], [address], 10/20/2025 09:18:46 Result Notes None recorded. Problems Name Problem SNOMED Code Status Onset Date Resolution Date Notes Provider Name and Address Organization Details Recorded Time Respirat ory crackles 47735307 Completed 10/05/2016 Willow cunningham [facility] 6 11:47:07 Influenz a 8896409 Completed 10/05/2016 Willow cunningham [facility] 6 11:47:10 Cough 51081660 Completed 10/05/2016 EMERSON Escobar, [facility] 6 11:06:03 Otitis media 45841083 Completed 10/05/2016 EMERSON Escobar, [facility] 6 11:06:08 Sinusiti s 87583552 Completed 10/05/2016 EMERSON Escobar, [facility] 6 11:05:57 Diarrhea 16138444 Completed 10/05/2016 EMERSON Escobar, [facility] 6 11:06:12 Stomach cramps 94711657 Completed 10/05/2016 EMERSON Escobar, [facility] 6 11:06:16 Clostrid ium difficil e colitis 353408151 Completed 10/06/2017 Willow cunningham [facility] 7 11:31:32 Abdomina l pain 40657025 Completed 10/06/2017 EMERSON Escobar, [facility] 7 11:04:19 Clostrid ioides difficil e infectio n 827618167 Completed 07/22/2024 SUKHJINDER OJEDA MD [address], [facility] [place], [address] , [facility] 4 07:25:47 Hypercho lesterol emia 65347825 Completed 08/04/2021 Willow cunningham [facility] 1 14:08:56 Advance care planning Active Not Available [facility] 3 13:25:11 Acute secretor y otitis media 546378176 Completed 200805/27/2014 IMPRESSI ON: RIGHT TM ALSO WITH SINUSITI S; RECORDED 12/11/19 09 1:21PM BY EMERSON HOU, ANNOTATI ON/ADDEN DUM Not Available [facility] 4 15:10:13 General examinat ion of patient Completed 200805/27/2014 IMPRESSI ON: PAP, MAMMO AND COLONOSC OPY UTD AND NL, EXERCISE S DAILY; RECORDED 12/11/19 09 1:21PM BY QUAN ADAMSATI ON/ADDEN DUM Not Available [facility] 4 15:10:14 Malaise and fatigue 144710854 Completed 200805/27/2014 RECORDED 12/11/19 09 2:16PM BY QUAN CHAPMANATI ON/ADDEN DUM Not Available [facility] 4 15:10:14 Acute secretor y otitis media 875792106 Completed 200806/16/2014 IMPRESSI ON: RIGHT TM ALSO WITH SINUSITI S; RECORDED 12/11/19 09 1:21PM BY EMERSON HOU ANNOTATI ON/ADDEN DUM Not Available [facility] 4 07:01:51 General examinat ion of patient Completed 200806/16/2014 IMPRESSI ON: PAP, MAMMO AND COLONOSC OPY UTD AND NL, EXERCISE S DAILY; RECORDED 12/11/19 09 1:21PM BY QUAN ADAMSATI ON/ADDEN DUM Not Available [facility] 4 07:01:51 Malaise and fatigue 570589340 Completed 200806/16/2014 RECORDED 12/11/19 09 2:16PM BY EMERSON NEWELL ANNOTATI ON/ADDEN DUM Not Available [facility] 4 07:01:51 Screenin g for malignan t neoplasm of colon Completed 200805/27/2014 RECORDED 06/10/20 09 2:02PM BY QUAN MARIEATI ON/ADDEN DUM Not Available [facility] 4 15:10:15 Screenin g for malignan t neoplasm of colon Completed 200806/16/2014 RECORDED 06/10/20 09 2:02PM BY EMERSON BROCK ANNOTATI ON/ADDEN DUM Not Available [facility] 4 07:01:51 Active or passive immuniza tion Completed 200905/27/2014 RECORDED 11/12/19 10 1:42PM BY WILLOW Ordonez MD, OFFICE VISIT Not Available [facility] 4 15:10:14 Active or passive immuniza tion Completed 200906/16/2014 RECORDED 11/12/19 10 1:42PM BY WILLOW Ordonez MD, OFFICE VISIT Not Available [facility] 4 07:01:51 Influenz a vaccine needed [id number] 06 Completed 200905/27/2014 DATE: 07/28/20 10; RECORDED 11/12/19 13 11:19AM BY BILLY ESCOBAR ON/ADDEN DUM EMERSON Escobar, [facility] 6 11:05:45 Administ ration of viral vaccine Completed 200905/27/2014 DATE: 07/28/20 10; RECORDED 11/12/19 13 11:20AM BY BILLY ESCOBAR ON/ADDEN DUM Not Available [facility] 4 15:10:14 Influenz a vaccine needed [id number] 06 Completed 200906/16/2014 DATE: 07/28/20 10; RECORDED 11/12/19 13 11:19AM BY BILLY ESCOBAR ON/ADDEN DUM EMERSON Escobar, [facility] 6 11:05:45 Administ ration of viral vaccine Completed 200906/16/2014 DATE: 07/28/20 10; RECORDED 11/12/19 13 11:20AM BY BILLY ESCOBAR ON/ADDEN DUM Not Available [facility] 4 07:01:51 Screenin g for malignan t neoplasm of breast Completed 201205/27/2014 RECORDED 11/12/19 13 11:19AM BY BILLY ESCOBAR ON/ADDEN DUM EMERSON Escobar, [facility] 7 11:04:35 Elevated blood-pr essure reading without diagnosi s of hyperten rosa [id number] Completed 201205/27/2014 RECORDED 11/12/19 13 11:19AM BY QUAN ESCOBARATI ON/ADDEN DUM Not Available [facility] 4 15:10:14 Essentia l hyperten rosa [id number] Completed 201205/27/2014 RECORDED 11/12/19 13 11:19AM BY QUAN ESCOBARATI ON/ADDEN DUM EMERSON Ibanez, [facility] 0 10:01:52 Adult health examinat ion Completed 201205/27/2014 IMPRESSI ON: PAP AND MAMMOT UTD, RESTART EXERCISE LOWER PORTIONS ; RECORDED 11/12/19 13 11:19AM BY BILLY ESCOBAR ON/ADDEN DUM EMERSON Escobar, [facility] 6 11:05:52 Screenin g for malignan t neoplasm of breast Completed 201206/16/2014 RECORDED 11/12/19 13 11:19AM BY BILLY ESCOBAR ON/ADDEN DUM EMERSON Escobar, [facility] 7 11:04:35 Elevated blood-pr essure reading without diagnosi s of hyperten rosa [id number] Completed 201206/16/2014 RECORDED 11/12/19 13 11:19AM BY BILYL ESCOBAR ON/ADDEN DUM Not Available [facility] 4 07:01:51 Spontane ous ecchymos is [id number] Completed 201205/27/2014 RECORDED 10/23/20 13 11:13AM BY GIOVANY PANDEY MA, QUANATI ON/ADDEN DUM Not Available [facility] 4 15:10:13 Closed fracture of foot 781964110 Completed 201205/27/2014 IMPRESSI ON: WITH WALKING, CONTINUE WSEARING WALKING BOOT; RECORDED 10/23/20 13 11:13AM BY GIOVANY PANDEY MA, ANNOTATI ON/ADDEN DUM Not Available [facility] 4 15:10:14 Administ ration of tetanus vaccine Completed 201205/27/2014 RECORDED 10/23/20 13 11:13AM BY GIOVANY PANDEY MA, ANNOTATI ON/ADDEN DUM Not Available [facility] 4 15:10:15 Joint pain in ankle and foot Completed 201205/27/2014 RECORDED 10/23/20 13 11:13AM BY GIOVANY PANDEY MA, ANNOTATI ON/ADDEN DUM Not Available [facility] 4 15:10:15 Portillo [id number] Completed 201205/27/2014 RECORDED 10/23/20 13 11:13AM BY GIOVANY PANDEY MA, ANNOTATI ON/ADDEN DUM EMERSON Ibanez [facility] 0 10:02:02 Adult health examinat ion Completed 201210/05/2016 IMPRESSI ON: PAP, MAMMO AND COLONOSC OPY UTD AND ALL NL, PT IS ACITVE , EXERCISE S AND FEELS WELL.IS ON CALCIUM AND VITAMIN D; RECORDED 10/23/20 13 12:06PM BY WILLOW Ordonez MD, OFFICE VISIT EMERSON Escobar, [place] - [facility] 6 11:05:52 Spontane ous ecchymos is [id number] Completed 201206/16/2014 RECORDED 10/23/20 13 11:13AM BY GIOVANY PANDEY MA, ANNOTATI ON/ADDEN DUM Not Available [facility] 4 07:01:51 Closed fracture of foot 700564196 Completed 201206/16/2014 IMPRESSI ON: WITH WALKING, CONTINUE WSEARING WALKING BOOT; RECORDED 10/23/20 13 11:13AM BY GIOVANY PANDEY MA, ANNOTATI ON/ADDEN DUM Not Available [facility] 4 07:01:51 Administ ration of tetanus vaccine Completed 201206/16/2014 RECORDED 10/23/20 13 11:13AM BY GIOVANY PANDEY MA, ANNOTATI ON/ADDEN DUM Not Available [facility] 4 07:01:51 Joint pain in ankle and foot Completed 201206/16/2014 RECORDED 10/23/20 13 11:13AM BY GIOVANY PANDEY MA, ANNOTATI ON/ADDEN DUM Not Available [facility] 4 07:01:51 Portillo [id number] Completed 201206/16/2014 RECORDED 10/23/20 13 11:13AM BY GIOVANY PANDEY MA, ANNOTATI ON/ADDEN DUM EMERSON Ibanez, [facility] 0 10:02:02 Patient status finding [id number] Completed 201310/05/2016 RECORDED 04/03/20 14 11:48AM BY CLAIRE BILLY, OFFICE VISIT EMERSON Escobar, [facility] 6 11:05:41 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 e 177531947 Completed 201310/06/2017 IMPRESSI ON: ON ACTONEL, VIT D AND CALCIUM CONTINUE ; RECORDED 04/03/20 14 11:42AM BY CLAIRE BILLY, OFFICE VISIT Willow cunningham [facility] 7 11:32:01 Essentia l hyperten rosa [id number] Active 2013 Not Available [facility] 3 13:25:11 Influenz a vaccine needed [id number] 06 Completed 201310/05/2016 RECORDED 04/03/20 14 11:42AM BY CLAIRE BILLY, OFFICE VISIT EMERSON Escobar, [facility] 6 11:05:45 Herpes zoster [id number] Completed 201304/02/2025 SUKHJINDER OJEDA MD [address] [facility] [address], [place], [address] , [facility] 5 07:12:10 Pure hypercho lesterol emia [id number] Completed 201310/06/2017 IMPRESSI ON: CHECK FASTING; RECORDED 04/03/20 14 11:42AM BY CLAIRE BILLY, OFFICE VISIT Willow cunningham [facility] 7 11:31:28 Screenin g for malignan t neoplasm of breast Completed 201310/06/2017 RECORDED 04/03/20 14 11:42AM BY CLAIRE BILLY, OFFICE VISIT EMERSON Escobar, [facility] 7 11:04:35 Portillo [id number] Active 2013 Not Available [facility] 3 13:25:10 Adult health examinat ion Completed 201306/16/2014 IMPRESSI ON: PAP, MAMMO AND COLONOSC OPY UTD AND ALL NL, PT IS ACITVE , EXERCISE S AND FEELS WELL.IS ON CALCIUM AND VITAMIN D; RECORDED 04/03/20 14 11:38AM BY CLAIRE BILLY, ANNOTATI ON/ADDEN DUM EMERSON Escobar, [facility] 6 11:05:52 Advance directiv e discusse d with patient 032533215 Completed 201910/26/2020 EMERSON Ibanez, [facility] 0 10:02:08 Squamous cell carcinom a of skin 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 Active 2019 Not Available [facility] 3 13:25:10 Chronic kidney disease stage 3 663736066 Completed 202008/04/2021 Willow cunningham, [facility] 1 14:09:00 Atrial fibrilla tion 45049725 Active 2021 Not Available [facility] 3 13:25:10 Hyperten rosa monitori ng status 732998021 Active 2021 [facility] - active Not Available [facility] 3 13:25:10 COVID-19 453032978 Completed 202101/25/2024 SUKHJINDER OJEDA MD [address] [facility] [address], [facility] [place], [address] , [facility] 4 07:21:29 Osteopen ia 513277248 Active 2024 SUKHJINDER OJEDA MD [address], [place] [place], [address] , [facility] 5 20:07:29 Chronic low back pain 190681538 Active 2024 Lenny Diaz PA-C [address], [place], [address] , [facility] 5 12:38:53 Problem Notes None recorded. Procedures Surgical History Date Name Laterality Status Provider Name and Address Organization Details Recorded Time 5 Most Recent Mammogram completed Naomi Sharma [facility] 05/06/2025 13:49:19 5 Mammogram screening completed Naomi Sharma [facility] 05/06/2025 13:48:36 5 Advanced Care Planning completed SUKHJINDER OJEDA MD [address], [place], [address], [facility] 04/02/2025 07:10:42 4 Mammogram Diagnostic Bilateral completed Carola Hannon [facility] 03/26/2024 15:28:17 0 Six-Item Cognitive Test completed Claire Billy MA [facility] 04/23/2020 14:43:36 9 Mammogram one breast completed Cristiana aPlma [facility] 03/20/2019 15:00:31 8 Date of Last Pap Smear completed Claire Billy MA [facility] 08/29/2018 08:53:19 7 Fall Risk Assessment completed Claire Billy MA [facility] 10/06/2017 11:12:29 7 Mini-Cog Test completed Claire Billy MA [facility] 10/06/2017 11:12:01 7 Advanced Care Planning completed Willow saunders [facility] 10/06/2017 11:30:30 6 Fall Risk Assessment completed Claire Henry [place] [facility] 10/05/2016 11:12:30 6 Mini-Cog Test completed Claire Henry EM[place] [facility] 10/05/2016 11:11:27 6 Advanced Care Planning completed Willow saunders [facility] 10/05/2016 12:00:31 5 Fall Risk Assessment completed Claire Henry EM[place] [facility] 09/28/2015 10:34:57 5 Mini-Cog Test completed Claire Henry EM[place] [facility] 09/28/2015 10:37:39 Imaging Results None recorded. Procedure [...] tablet by mouth once daily 01/25 completed Not taking? Not Available Not Available Not [...] Not Available No t Available Fluzone High-Dose 2019-20 (PF) 180 mcg/0.5 mL intramusc ular syringe [...] Not Available Not Available Vitals Date Recorded Body height Body mass index (BMI) Body weight Heart rate Oxygen saturation Body temperature Systolic And Diastolic Provider Name and Address Organization Details Last Updated DateTime 5 162.56 cm 25.7 kg/m2 89791.8 6 g 96 /min 99 % 97.9 [degF] 138/77 mm[Hg] Charlotte briseno MA [facility] 5 14:25:47 Social History Question Answer Notes LastModified by Organizat ion Details LastModified Time Tobacco Smoking Status [facility]2014 10:59:10 Is Blood Transfusion Acceptable In An Emergency? Yes [email or web address] Information not available 09/28/2015 What Is Your Level Of Caffeine Consumption? Occasional [email or web address] Information not available 09/04/2014 What Type Of Diet Are You Following? REGULAR [email or web address] Information not available 09/04/2014 Live Alone Or With Others? With Others Information not available 09/04/2014 Do You Take Precautions To Prevent Distracted Driving? Yes [email or web address] Information not available 09/28/2015 How Often Do You Need To Have Someone Help You When You Read Instructions, Pamphlets, Or Other Written Material From Your Doctor Or Pharmacy? Sometimes [email or web address] Information not available 09/28/2015 Have You Served In The ? No Information not available 04/23/2020 Have You Or [...] OUD But Is Possibly At Risk. No [email or web address] Information not available 08/04/2021 Have You Recently Traveled To A COVID-19 High Risk Area Or Gathering In The Last 10 Days? No [email or web address] Information not available 08/04/2021 What Was The Date Of Your Most Recent Tobacco Screening? 10/14/2025 Information not available 10/14/2025 What Is Your Relationship Status? [email or web address] Information not available 09/28/2015 Seat Belts Used Routinely Yes Information not available 09/04/2014 Smoke Alarm In Home Yes [email or web address] Information not available 09/04/2014 How Much Tobacco Do You Smoke? No Information not available 08/29/2018 General Stress Level Medium [email or web address] Information not available 09/04/2014 Do You Use Sunscreen Routinely? Yes [email or web address] Information not available 09/04/2014 How Many Years [...] is your level of alcohol consumption? Occasional [email or web address] Information not available 09/04/2014 Do you or have you ever used smokeless tobacco? Never used smokeless tobacco [email or web address] Information not available 04/23/2020 Are you currently employed? No Information not available 10/14/2025 Are you able to walk independently without assistance or assistive devices? YESWOREST [email or web address] Information not available 08/04/2021 Are you able to care for yourself independently? Yes Information not available 09/04/2014 Do you or have you ever used e-cigarettes or vape? Never used electronic cigarettes [email or web address] Information not available 04/23/2020 What is your exercise level? Occasional Information not available 08/04/2021 Mental Status None [...] N Breast Cancer N mrsa exposure N COPD N Depression N Lung Disease N Hypothyroidism N Defects or Inherited Disease N Developmental or Behavioral Disorders N Breast Problem N Anesthesia Complications N Headaches/Migraines N Varicose Veins N Anxiety Disorder N Muscle, Joint, or Bone Problems N Obesity N Vision or Eye Problems N Arthritis Y Head Injury/Concussion N Polyps N Infertility N Mental Disorder N Congenital Anomalies N Acid Reflux (GERD) N Cancer N Stroke N ADHD N Endometriosis N High Cholesterol Y Liver Disease N Fibromyalgia N Headaches N Kidney Disease N Heart Problems N [...] Eczema N Diverticulitis N Abuse/Domestic Violence N Allergies N Asthma N Reflux/GERD N Hepatitis N Heart Disease Y Pulmonary Embolism N Hypertension Y Osteoporosis N Chicken Pox N Autism Spectrum Disorder (ASD) N Gynecological History Statement/Question Response Date of Last Pap Smear 08/27/2018 Date of Last Colonoscopy Most Recent Mammogram 05/02/2025 Obstetrics History GPAL:G 0 P 0 0 0 0 Immunizations Vaccine Type Date Status Note Provider Nam e and Address Organization Details Recorded Time COVID-19, mRNA, LNP-S, PF, 30 mcg/0.3 mL dose 1 completed Vivien Garibay null, [facility] 08/10/2023 14:11:15 COVID-19, mRNA, LNP-S, PF, 30 mcg/0.3 mL dose 1 completed Vivien Garibay null, [facility] 08/10/2023 14:11:15 COVID-19, mRNA, LNP-S, PF, 30 mcg/0.3 mL dose 1 completed Vivien Garibay null, [facility] 08/10/2023 14:11:16 Influenza, high-dose, quadrivalent, PF 0 completed Vivien Garibay null, [facility] 08/10/2023 14:11:15 Influenza, high-dose, trivalent, PF 0 completed Vivien Garibay null, [facility] 08/10/2023 14:11:16 Influenza, split virus, quadrivalent, PF 5 completed Not Available [facility] 11/23/2019 02:22:02 Influenza, high-dose, trivalent, PF 6 completed Vivien Garibay null, [facility] 08/10/2023 14:11:16 Influenza, high-dose, trivalent, PF 8 completed Vivien Garibay null, [facility] 08/10/2023 14:11:16 Influenza, high-dose, trivalent, PF 7 completed Vivien Garibay null, [facility] 08/10/2023 14:11:16 Influenza, high-dose, quadrivalent, PF 1 [facility] 14:11:15 Influenza, split virus, trivalent, PF 4 completed Vivien Garibay null, [facility] 08/10/2023 14:11:16 Pneumococcal conjugate PCV 13 6 completed Vivien Garibay null, [facility] 08/10/2023 14:11:16 Influenza, high-dose, quadrivalent, PF 2 completed Vivien Garibay null, [facility] 08/10/2023 14:11:15 Influenza, adjuvanted, quadrivalent, PF 3 completed Claire Billy MA null, [facility] 07/23/2024 13:21:54 COVID-19, mRNA, LNP-S, bivalent, PF, 30 mcg/0.3 mL dose 3 completed EMERSON Escobar, [facility] 07/23/2024 13:21:54 COVID-19, mRNA, LNP-S, PF, 50 mcg/0.5 mL 3 completed EMERSON Escobar, [facility] 07/23/2024 13:21:54 COVID-19, mRNA, LNP-S, PF, 50 mcg/0.5 mL 4 completed EMERSON Goodman, [facility] 02/28/2025 13:12:25 Pneumococcal conjugate PCV21, polysaccharide MBT147 conjugate, PF 5 completed Cris cunningham, [facility] 10/06/2025 13:53:21 COVID-19, mRNA, LNP-S, PF, 10 mcg/0.2 mL 5 completed Not Available [facility] 10/14/2025 14:06:28 Influenza, high-dose, trivalent, PF 5 completed Not Available [facility] 10/14/[facility]25 14:06:28 Influenza, split virus, trivalent, preservative 8 completed Vivien cunningham, [facility] 08/10/2023 14:11:16 Influenza, split virus, trivalent, preservative 9 completed Vivien cunningham, [facility] 08/10/2023 14:11:16 pneumococcal polysaccharide PPV23 0 completed Vivien cunningham, [facility] 08/10/2023 14:11:16 Influenza, split virus, trivalent, preservative 0 completed Vivien cunningham, [facility] 08/10/2023 14:11:16 Influenza, split virus, trivalent, preservative 1 completed Vivien cunningham, [facility] 08/10/2023 14:11:16 Td (adult), 2 Lf tetanus toxoid, preservative free, adsorbed 2 completed Vivien cunningham, [facility] 08/10/2023 14:11:16 zoster live 2 completed Vivien cunningham, [facility] 08/10/2023 14:11:16 zoster live 2 completed Vivien cunningham, [facility] 08/10/2023 14:11:16 Influenza, split virus, trivalent, preservative 2 completed Vivien cunningham, [facility] 08/10/2023 14:11:16 Influenza, split virus, trivalent, preservative 3 completed Vivien cunningham, [facility] 08/10/2023 14:11:16 Td (adult), 2 Lf tetanus toxoid, preservative free, adsorbed 2 completed Willow pate null, [facility] 10/20/2022 15:35:35 Influenza, high-dose, trivalent, PF 4 completed EMERSON Escobar, [facility] 07/23/2024 13:36:20 Past Encounters Encounter ID Performer Location Encounter Start Date Encounter Closed Date Diagnosis/Indication Diagnosis SNOMED-CT Code Diagnosis ICD10 Code Diagnosis IMO Codes Diagnosis Note [id number] SUKHJINDER OJEDA MD Main Office [address] [facility] [address] [place] [address] 10/06/2025 14:15:52 10/06/2025 14:44:29 Atrial fibrillation 54008126 I48.91 - diagnosed in 02/2022- pt is [...] mmHg.- no current bleeding risks Essential hypertension 36560063 I10 - slightly elevated today- BP today [...] vision. 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 [address] [place] [address] 10/14/2025 14:03:45 10/14/2025 14:59:35 Pain of hip region 18765254 M25.551 [id number] Health Concerns Section Related Observation LastModified by Organization Detai ls LastModified Time None Recorded Concern Status LastModified by Organization Details LastModified Time None Recorded Payers Encounter Date Sequence Insurance Name Policy Number Policy Ricketts Covered Member ID Ricketts Member ID Guarantor Name 10/14/2025 1 [employer] - MEDICARE [employer]VANTAGE PLAN (MEDICARE REPLACEMENT HMO) [id number] Demetra Chavez [id number] Demetra Chavez Notes Date Note Type Note Provider Name and Address Organization Details Recorded Time 10/14/2025 text/html Hip(s)Reported b y PatientHPIFor associated symptoms, patient reportscatching/loc kingandbucklingbut reportsno weakness,no numbness,no tingling,no swelling,no redness,no warmth,no ecchymosis,no popping/clicking,no grinding,no instability,no radiation down leg,no drainage,no fever,no chills,no weight loss, andno change in bowel/bladder habits. For location, patient reportsright,anteri or,medial, andgroin. For quality, patient reportsaching. For duration, patient reports2 days. For timing, patient reportsacuteandabru pt. For context, (woke up with pain 2 days ago.). For alleviating factors, (sitting, resting. tylenol and a heating pad helps a little.). For aggravating factors, (moving around).Here with daughter whom she allowed to be at visit. Nuris Guillen MD [address], [address], [facility] 10/14/2025 21:48:31 OBGyn Episode No OBEpisode recorded.
--- OUTSIDE RECORDS SUMMARY | 2025-10-22 18:54 | XMS_ITS | Data Portability ---
Author Organization [facility], Main Office Address [address] [facility] [address] [place] [address] Care Team Providers Care Diamond Sizer Name Role Phone JONAH ABDULLAHI Glue Sprayer SANA KOHLI Executive Administrator ANSHUL GUPTA Last Puller LUCY BRITT Primary Care Provider Assessment Encounter Date Assessment [...] Details Last Modified Time Details Appointments None recor ded. Lab lipid panel , serum 2024 025 ANALY [facility], [address], [place], [address], 5 06:08:02 TSH, ultra -sens itive , serum 2024 025 ANALY [facility], [address], [place], [address], 5 06:08:04 vitam in D, 25-hy droxy , total , serum 2024 025 ANALY [facility] (Centralized Electronic Ordering - All Locations), Patient Can Go To The Location Of Their Choice, [address] 06:08:03 BMP, serum or plasm a 2024 025 ANALY [facility] (Centralized Electronic Ordering - All Locations), Patient Can Go To The Location Of Their Choice, [address] 06:08:01 CBC w/ auto diff 2024 025 ANALY [facility], [address], [place], [address], 5 06:08:00 Referral physi freda thera pist refer ral 2024 025 Not available 14:59:35 ortho pedic surge on refer ral 2024 025 lizette [facility], [address], [place], [address], 5 16:55:53 physi freda thera pist refer ral - DX: cervi freda / trap pain / myofa scial syndr ome eval & treat 2-3x/ wk x [address] [facility], [address], [place], [address], 10:07:34 physi freda [facility] il[facility] t[facility] refer ral 2024 025 [facility], [address], [address], [place], [address], 11:25:16 physi freda thera pist refer ral [address] [facility], [address], [place], [address], 09:57:13 Procedures None recor ded. Surgeries None recor ded. Imaging XR, hip + pelvi s, unila teral , 2 or 3 view 2024 025 [facility], [address] , [place], [address], 09:54:44 XR, cervi freda spine 2024 025 [facility], [address], [place], [address], 5 10:39:43 XR, lumba r spine 2024 025 [facility], [address], [facility] [place], [address], 5 15:40:24 XR, hip + pelvi s, bilat eral 2024 025 [facility], [address], [facility] [place], [address], 5 10:21:57 bone densi ty - pleas e print for patie nt 2024 025 [email or web address] Not available 10:56:40 MRI, brain , w/o contr ast 2024 025 [facility] ([facility]), [address], [place], [address], 16:20:20 MAMMO , scree debra, bilat eral - Perfo rm Diagn ostic Mammo gram and Breas t Ultra sound if neede d / Perfo rm Ultra sound Guide d Aspir ation and/o r Breas t Biops y if warra nted 2024 025 ANALY Not available 16:57:29 Medication Orders Rowan kofi Arthr itis Pain 1 % topic al gel 2024 025 [facility]0517, [address], [place], [address], 14:54:30 amlod ipine 5 mg table t 2024 025 [facility] #0517, [address], [place], [address], 14:43:19 lisin opril 40 mg table t 2024 025 [facility] #0517, [address], [place], [address], 14:43:18 metop rolol succi tessa ER 25 mg table t,ext ended relea se 24 hr 2024 025 [facility] #0517, [address], [place], [address], 5 14:43:20 tizan idine 2 mg table t 2024 025 [facility] #0517, [address], [place], [address], 14:22:36 fluti fatimah e propi meron 50 mcg/a ctuat ion nasal spray ,susp ensio n 2024 025 [email or web address] [facility], [address], [place], [address], 10:20:05 metop rolol succi tessa ER 25 mg table t,ext ended relea se 24 hr 2024 025 ANALY [facility]0517, [address], [place], [address], 14:24:42 Patient TargetsNo targets recorded. Patient Instructions Encounter Date Encounter Id Patient Instructions Last Modified By Organization Details Last Modified Time 04/02/2025 [id number] advance care planning: care instructions Not available 04/02/2025 14:21:42 seasonal allergies: care instructions Not available 04/02/2025 16:07:49 hearing loss: care instructions Not available 04/02/2025 15:17:40 high blood pressure: care instructions Not available 04/02/2025 14:21:41 learning about high blood pressure Not available 04/02/2025 14:21:42 atrial fibrillation: care instructions Not available 04/02/2025 14:21:42 06/25/2025 [id number] back spasm: care instructions pmadden Not available 06/25/2025 16:58:48 back stretches: exercises pmadden Not available 06/25/2025 16:58:48 neck trapeziss upper fibers standing stretch: exercises pmadden Not available 06/25/2025 16:58:48 Follow up if no improvement or if symptoms worsen. pmadden Not available 06/25/2025 16:52:29 07/16/2025 [id number] Follow up if no improvement or if symptoms worsen. pmadden Not available 07/16/2025 14:21:09 10/06/2025 [id number] high blood pressure: care instructions Not available 10/06/2025 14:43:15 learning about high blood pressure Not available 10/06/2025 14:43:15 atrial fibrillation: care instructions Not available 10/06/2025 14:43:15 medical record request* [email or web address] Not available 10/07/2025 10:06:03 10/14/2025 [id number] hip pain: care instructions [email or web address] Not available 10/14/2025 14:51:16 trochanteric bursitis: exercises ckokar Not available 10/14/2025 14:52:29 Reason for Referral Physical Therapist Referral for At increased risk for falls Referring Physician: Lucy Britt, Family Medicine, Encounter Date: 04/02/2025 Physical Medicine And Rehabi litation Referral for Abnormal gait Referring Physician: Lenny Diaz Internal [facility], Encounter Date: 06/25/2025 Physical Therapist Referral for Myofascial pain syndrome of neck DX: cervical / trap pain / myofascial syndrome eval & treat 2-3x/wk x 4 wks Referring Physician: Lenny Diaz [facility], Encounter Date: 07/16/2025 Physical Therapist Referral for Pain of hip region Referring Physician: Nuris Guillen [facility], Encounter Date: 10/14/2025 Orthopedic Surgeon Referral for Pain of hip region Referring Physician: Nuris Guillen [facility], Encounter Date: 10/14/2025 Results Created Date Observation Date Name Description Value Unit Range Abnormal Flag Note LastModifiedBy Organization Detail LastModifiedTime 04/11/20 25 04/11/2025 CBC WITH DIFFE RENTI AL/PL ATELE T WBC 4.8 x10e3 /uL 3.4-10 .8 normal Not Available [facility] ([facility]) [address] [facility], [place], [address], 04/12/2025 06:08:00 04/11/20 25 04/11/2025 CBC WITH DIFFE RENTI AL/PL ATELE T RBC 5.00 x10e6 /uL 3.77-5 .28 normal Not Available [facility] ([facility]) [address] [place], [address], 04/12/2025 06:08:00 04/11/20 25 04/11/2025 CBC WITH DIFFE RENTI AL/PL ATELE T hemoglobin 15.0 g/dL 11.1-1 5.9 normal Not Available [facility] ([facility]) [address] [place], [address], 04/12/2025 06:08:00 04/11/20 25 04/11/2025 CBC WITH DIFFE RENTI AL/PL ATELE T hematocrit 45.8 % 34.0-4 6.6 normal Not Available [facility] ([facility]) [address] [facility], [place], [address], 04/12/2025 06:08:00 04/11/20 25 04/11/2025 CBC WITH DIFFE RENTI AL/PL ATELE T MCV 92 fL 79-97 normal Not Available [facility] ([facility]) [address] [place], [address], 04/12/2025 06:08:00 04/11/20 25 04/11/2025 CBC WITH DIFFE RENTI AL/PL ATELE T MCH 30.0 pg 26.6-3 3.0 normal Not Available [facility] ([facility]) [address] [place], [address], 04/12/2025 06:08:00 04/11/20 25 04/11/2025 CBC WITH DIFFE RENTI AL/PL ATELE T MCHC 32.8 g/dL 31.5-3 5.7 normal Not Available [facility] ([facility]) [address] [place], [address], 04/12/2025 06:08:00 04/11/20 25 04/11/2025 CBC WITH DIFFE RENTI AL/PL ATELE T RDW 13.0 % 11.7-1 5.4 Not Available [facility] ([facility]) [address] [facility], [place], [address], 04/12/2025 06:08:00 04/11/20 25 04/11/2025 CBC WITH DIFFE RENTI AL/PL ATELE T platelets 155 x10e3 /uL 150-45 0 normal Not Available [facility] ([facility]) [address] [facility], [place], [address], 04/12/2025 06:08:00 04/11/20 25 04/11/2025 CBC WITH DIFFE RENTI AL/PL ATELE T neutrophils 47 % not estab. normal Not Available [facility] ([facility]) [address] [facility], [place], [address], 04/12/2025 06:08:00 04/11/20 25 04/11/2025 CBC WITH DIFFE RENTI AL/PL ATELE T lymphs 42 % not estab. normal Not Available [facility] ([facility]) [address] [facility], [place], [address], 04/12/2025 06:08:00 04/11/20 25 04/11/2025 CBC WITH DIFFE RENTI AL/PL ATELE T monocytes 10 % not estab. normal Not Available [facility] ([facility]) [address] [facility], [place], [address], 04/12/2025 06:08:00 04/11/20 25 04/11/2025 CBC WITH DIFFE RENTI AL/PL ATELE T eos 0 % not estab. normal Not Available [facility] ([facility]) [address] [facility], [place], [address], 04/12/2025 06:08:00 04/11/20 25 04/11/2025 CBC WITH DIFFE RENTI AL/PL ATELE T basos 1 % not estab. normal Not Available [facility] ([facility]) [address] [facility], [place], [address], 04/12/2025 06:08:00 04/11/20 25 04/11/2025 CBC WITH DIFFE RENTI AL/PL ATELE T immature cells MOLD ENGRAVER Not Available [facility] ([facility]) [address] [place], [address], 04/12/2025 06:08:00 04/11/20 25 04/11/2025 CBC WITH DIFFE RENTI AL/PL ATELE T neutrophils (absolute) 2.2 x10e3 /uL 1.4-7. 0 normal Not Available [facility] ([facility]) [address] [place], [address], 04/12/2025 06:08:00 04/11/20 25 04/11/2025 CBC WITH DIFFE RENTI AL/PL ATELE T lymphs (absolute) 2.0 x10e3 /uL 0.7-3. 1 normal Not Available [facility] ([facility]) [address] [place], [address], 04/12/2025 06:08:00 04/11/20 25 04/11/2025 CBC WITH DIFFE RENTI AL/PL ATELE T monocytes(ab solute) 0.5 x10e3 /uL 0.1-0. 9 normal Not Available [facility] ([facility]) [address] [place], [address], 04/12/2025 06:08:00 04/11/20 25 04/11/2025 CBC WITH DIFFE RENTI AL/PL ATELE T eos (absolute) 0.0 x10e3 /uL 0.0-0. 4 normal Not Available [facility] ([facility]) [address] [place], [address], 04/12/2025 06:08:00 04/11/20 25 04/11/2025 CBC WITH DIFFE RENTI AL/PL ATELE T baso (absolute) 0.0 x10e3 /uL 0.0-0. 2 normal Not Available [facility] ([facility]) [address] [facility], [place], [address], 04/12/2025 06:08:00 04/11/20 25 04/11/2025 CBC WITH DIFFE RENTI AL/PL ATELE T immature granulocytes 0 % not estab. Not Available [facility] ([facility]) [address] [facility], [place], [address], 04/12/2025 06:08:00 04/11/20 25 04/11/2025 CBC WITH DIFFE RENTI AL/PL ATELE T immature grans (abs) 0.0 x10e3 /uL 0.0-0. 1 Not Available [facility] ([facility]) [address] [facility], [place], [address], 04/12/2025 06:08:00 04/11/20 25 04/11/2025 CBC WITH DIFFE RENTI AL/PL ATELE T NRBC MOLD ENGRAVER Not Available [facility] ([facility]) [address] [facility], [place], [address], 04/12/2025 06:08:00 04/11/20 25 04/11/2025 CBC WITH DIFFE RENTI AL/PL ATELE T hematology comments: MOLD ENGRAVER Not Available [facility] ([facility]) [address] [facility], [place], [address], 04/12/2025 06:08:00 04/11/20 25 04/12/2025 BASIC METAB OLIC PANEL (8) glucose 102 mg/dL 70-99 above high normal Not Available [facility] ([facility]) [address] [facility], [place], [address], 04/12/2025 06:08:01 04/11/20 25 04/12/2025 BASIC METAB OLIC PANEL (8) BUN 14 mg/dL 8-27 normal Not Available [facility] ([facility]) [address] [place], [address], 04/12/2025 06:08:01 04/11/20 25 04/12/2025 BASIC METAB OLIC PANEL (8) creatinine 0.78 mg/dL 0.57-1 .00 normal Not Available [facility] ([facility]) [address] [facility] [place], [address], 04/12/2025 06:08:01 04/11/20 25 04/12/2025 BASIC METAB OLIC PANEL (8) eGFR 73 mL/mi n/1.7 3 >59 normal Not Available [facility] ([facility]) [address] [facility] [place], [address], 04/12/2025 06:08:01 04/11/20 25 04/12/2025 BASIC METAB OLIC PANEL (8) BUN/creatini ne ratio 18 12-28 normal Not Available [facility] ([facility]) [address] [facility] [place], [address], 04/12/2025 06:08:01 04/11/20 25 04/12/2025 BASIC METAB OLIC PANEL (8) sodium 143 mmol/ L 134-14 4 normal Not Available [facility] ([facility]) [address] [facility] [place], [address], 04/12/2025 06:08:01 04/11/20 25 04/12/2025 BASIC METAB OLIC PANEL (8) potassium 4.2 mmol/ L 3.5-5. 2 normal Not Available [facility] ([facility]) [address] [facility] [place], [address], 04/12/2025 06:08:01 04/11/20 25 04/12/2025 BASIC METAB OLIC PANEL (8) chloride 106 mmol/ L 96-106 normal Not Available [facility] ([facility]) [address] [facility] [place], [address], 04/12/2025 06:08:01 04/11/20 25 04/12/2025 BASIC METAB OLIC PANEL (8) carbon dioxide, total 23 mmol/ L 20-29 normal Not Available [facility] ([facility]) [address] [facility] [place], [address], 04/12/2025 06:08:01 04/11/20 25 04/12/2025 BASIC METAB OLIC PANEL (8) calcium 9.5 mg/dL 8.7-10 .3 normal Not Available [facility] ([facility]) [address] [facility] [place], [address], 04/12/2025 06:08:01 04/11/20 25 04/12/2025 LIPID PANEL cholesterol, total 196 mg/dL 100-19 9 normal Not Available [facility] ([facility]) [address] [facility] [place], [address], 04/12/2025 06:08:02 04/11/20 25 04/12/2025 LIPID PANEL triglyceride s 93 mg/dL 0-149 normal Not Available [facility] ([facility]) [address] [facility] [place], [address], 04/12/2025 06:08:02 04/11/20 25 04/12/2025 LIPID PANEL HDL cholesterol 61 mg/dL >39 normal Not Available [facility] ([facility]) [address] [facility] [place], [address], 04/12/2025 06:08:02 04/11/20 25 04/12/2025 LIPID PANEL VLDL cholesterol freda 17 mg/dL 5-40 Not Available [facility] ([facility]) [address] [place], [address], 04/12/2025 06:08:02 04/11/20 25 04/12/2025 LIPID PANEL LDL chol calc ([facility]) 118 mg/dL 0-99 above high normal Not Available [facility] ([facility]) [address] [place], [address], 04/12/2025 06:08:02 04/11/20 25 04/12/2025 LIPID PANEL LDL calc comment: MOLD ENGRAVER Not Available [facility] ([facility]) [address] [facility], [place], [address], 04/12/2025 06:08:02 04/11/20 25 04/12/2025 VITAM IN D, 25-HY DROXY vitamin D, 25-hydroxy 65.8 NG/mL 30.0-1 00.0 Vitam in D defic iency has been defin ed by the Insti tute of Medic ine and an Endoc rine Socie ty pract ice guide line as a level of serum 25-OH vitam in D less than 20 ng/mL (1,2) . The Endoc rine Socie ty went on to furth er defin e vitam in D insuf ficie ncy as a level betwe en 21 and 29 ng/mL (2). 1. IOM (Inst itute of Medic ine). 2009. Jaky ry refer ence indira es for calci um and D. Giuliana miguel [place]: The Natio nal [facility] Press . 2. Ashish novoa MF, Matthew ey [place], Ronak off-F errar i CARY, et al. Evalu ation , treat ment, and preve ntion of vitam in D defic iency : an Endoc rine Socie ty clini freda pract ice guide line. JCEM. 2010; 96(7) :1911 -30. Not Available [facility] ([facility]) [address] [facility], [place], [address], 04/12/2025 06:08:03 04/11/20 25 04/12/2025 TSH RFX ON ABNOR MAL TO FREE T4 TSH 2.060 uIU/m L 0.450- 4.500 normal Not Available [facility] ([facility]) [address] [facility], [place], [address], 04/12/2025 06:08:04 04/21/20 25 04/17/2025 MRI, brain , w/o contr ast No observ ation record ed. [facility] [address], [place], [address], 06/25/2025 16:38:00 05/05/20 25 05/02/2025 MAMMO , scree debra, digit al, bilat eral PROCED URE: MM Digita l Mammo Screen ing INDICA TION: Screen ing for breast cancer . COMPAR PRANAY: Multip le priors , most recent screen ing exam 024 TECHNI QUE: Full-f ield digita l CC and MLO 3D tomosy nthesi s images of both breast s were acquir ed. Comput er-aid ed detect ion (CAD) was utiliz ed in the interp retati on of this study. DENSIT Y: There are scatte red areas of fibrog landul ar densit y. FINDIN GS: No suspic ious masses , suspic ious microc alcifi cation s, or areas of janet ectura l distor tion are seen in either breast to sugges t malign dagmar. IMPRES CHRIS: No mammog raphic eviden ce of malign dagmar. RECOMM ENDATI ON: Annual mammog raphic screen ing BI-RAD S: 1 (Negat jennifer) Lay letter mailed to kitty t WSN: [id number] Orderi ng Physic igor: Lazaro Rose ie Dictat ed By: Laurel Lloyd MD Dictat ed Date/T gaby: 4:52 pm Review ed By: Laurel Lloyd MD Signed By: Laurel Lloyd MD Signed Date/T gaby: 4:52 pm Transc ribed By: CSB Transc riptio n Date/T gaby: 4:49 pm Birads : Paticonnor t Class: Outpat ient [address] (Outpt Imaging) [address] [place], [address], 05/06/2025 13:48:01 05/05/20 25 05/02/2025 MAMMO , scree debra, bilat eral No observ ation record ed. [email or web address] [facility] [address], [place], [address], 05/06/2025 13:49:35 05/28/20 25 05/12/2025 DEXA, axial skele ton Name:Gregg driver ID: [id number] Age:89 years Sex:Fe male Ethnic ity:Wh ite Date of : [birth year] Reason : M85.89 DISORD ERS OF BONE DENSIT Y STRUCT URE MULT SITES; Clinic al Questi on(s): Other: Referr ing Provid er:Puneet jamil Study: Dexa Bone Densit y (Axial ) Bone Densit y: Region BMD T-Scor e Z-Scor e Classi ficati on AP Spine 0.962 -0.8 2.1 Normal TOTAL HIP 0.695 -2.0 0.3 Osteop enia FEM NECK 0.722 -1.1 1.4 Osteop enia 10-yea r Fractu re Risk: 1 FRAX(R ) Versio n 3.08. Fractu re probab ility calcul ated for an untrea francisco patien t. Fractu re probab ility may be lower if the patien t has receiv ed treatm ent. Major Osteop orotic Fractu re 10% Hip Fractu re 2.7% RATE OF CHANGE (SPINE ): BMD values have increa sed 9.0% from previo us RATE OF CHANGE (TOTAL HIP): BMD values have decrea sed 15.9% from previo us RATE OF CHANGE (FEMOR AL NECK): BMD values have decrea sed 13.4% from previo us Impres chris: The patien t has osteop enia as determ ined by WHO criter ia. WSN: [id number] Orderi ng Physic igor: Lazaro Rose Dictat ed By: Laurel Lloyd MD Dictat ed Date/T gaby: 2:54 pm Review ed By: Laurel Lloyd MD Signed By: Laurel Lloyd MD Signed Date/T gaby: 2:54 pm Transc ribed By: DERRICKB Transc ribed Date/T gaby: 2:53 pm Patien t Class: Outpat ient [facility] (Outpt Imaging) [address] [place], [address], 05/30/2025 16:25:35 07/01/2006/30/2025 XR, lumba r spine Lumbar Spine 2 or 3 Views Reason : pain COMPAR PRANAY: None. FINDIN GS: No bone lesion s or fractu res. Genera lized osteop enia Genera lly mild multif ocal degene rative disc endpla te spurri ng and disc space narrow ing except for modera te narrow ing at L4-L5. Normal alignm ent. No spondy lolysi s or spondy lolist hesis. Normal soft tissue s. IMPRES CHRIS: No acute findin gs. Osteop enia. Degene rative disc diseas e primar lev L4-L5. WSN: [id number] Orderi ng Physic igor: Ramón Diaz Dictat ed By: Lesly Zhang MD Dictat ed Date/T gaby: 3:37 pm Review ed By: Arnulfo short MD, Lesly otero H Signed By: Lesly Zhang MD Signed Date/T gaby: 3:37 pm Transc ribed By: AYDEE Transc ribed Date/T gaby: 3:35 pm Patien t Class: Outpat ient pmadden [facility] (Outpt Imaging) [address] [place] [address], [address], 07/16/2025 14:11:38 07/01/2006/30/2025 xr hip bilat 3-4 views w/AP pelvi s XR Hip Bilat 3-4 Views W/AP Pelvis Reason : pain COMPAR PRANAY: None. FINDIN GS: Bones are genera lly osteop enic. Pelvic ring is intact with grossl y normal sacroi liac joints . No lytic or blasti c lesion s. No eviden ce for fractu re or bone lesion s either hip. There is modera te narrow ing of both hip joints with mild to modera te margin al osteop hyte format ion, slight ly more so about the latera l acetab ular roof on the left. No eviden ce for avascu lar necros is of the femora l heads. There is mild osteop hyte format ion from the greate r trocha nters bilate rally. Normal soft tissue s. IMPRES CHRIS: No acute osseou s abnorm alitie s. Osteop enia. 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 WSN: [id number] Orderi ng Physic igor: Ramón Diaz Dictat ed By: Lesly Zhang MD Dictat ed Date/T gaby: 3:47 pm Review ed By: Lesly Zhang MD Signed By: Lesly Zhang MD Signed Date/T gaby: 3:47 pm Transc ribed By: AYDEE Transc ribed Date/T gaby: 3:44 pm Patien t Class: Outpat ient pmadden [facility] (Outpt Imaging) [address], [place], [address], 07/16/2025 14:11:37 07/20/2007/16/2025 XR, cervi freda spine , 2 or 3 view No observ ation record ed. [email or web address] [facility] [place] [address] [facility] [address], [place], [address], 07/22/2025 09:36:44 10/16/20 25 10/14/2025 XR, hip + pelvi [...] sis and osteop hyte format ion. IMPRES CRHIS: Degene rative change s. No eviden ce of fractu re or disloc ation. Thank you for neili ng me to partic ipate in the care of this patien t. WSN: [id number] Orderi ng Physic igor: MindyKeonmikey boyd Dictat ed By: Ge Cid MD Dictat ed Date/T gaby: 9:51 am Review ed By: Ge Cid MD Signed By: Ge Cid MD Signed Date/T gaby: 9:51 am Transc ribed By: AYDEE Transc ribed Date/T gaby: 9:51 am Patien t Class: Outpat ient [email or web address] [facility] (Outpt Imaging) [address], [place], [address], 10/20/2025 09:18:34 10/16/2010/14/2025 XR, hip + pelvi s, unila teral , 2 or 3 view No observ ation record ed. [email or web address] [address] [place], [address], 10/20/2025 09:18:46 Result Notes Documentation Provider Name and Address Organization Details Recorded Time Mammo, Screening, Digital, Bilateral : PROCEDURE: MM Digital Mammo Screening INDICATION: Screening for breast cancer. COMPARISON: Multiple priors, most recent screening exam 03/26/2024 TECHNIQUE: Full-field digital CC and MLO 3D tomosynthesis images of both breasts were acquired. Computer-aided detection (CAD) was utilized in the interpretation of this study. DENSITY: There are scattered areas of fibroglandular density. FINDINGS: No suspicious masses, suspicious microcalcifications, or areas of architectural distortion are seen in either breast to suggest malignancy. IMPRESSION: No mammographic evidence of malignancy. RECOMMENDATION: Annual mammographic screening BI-RADS: 1 (Negative) Lay letter mailed to patient WSN: [id number] Ordering Physician: Lucy Britt Dictated By: Bob Lloyd MD Dictated Date/Time: 05/05/25 4:52 pm Reviewed By: Bob Lloyd MD Signed By: Bob Lloyd MD Signed Date/Time: 05/05/25 4:52 pm Transcribed By: AYDEE Resident Assistant Cna Date/Time: 05/05/25 4:49 pm Birads: Patient Class: Outpatient Naomi Zachary cunningham, [facility] 05/06/2025 13:48:01 Dexa, Axial Skeleton : Name:KRYSTAL CHAVEZ Age:89 years Sex:Female Ethnicity:White Date of :1935 Reason: M85.89 DISORDERS OF BONE DENSITY STRUCTURE MULT SITES; Clinical Question(s): Other: Referring Provider:Lucy Britt Study:Dexa Bone Density (Axial) Bone Density: Region BMD T-Score Z-Score Classification AP Spine 0.962 -0.8 2.1 Normal TOTAL HIP 0.695 -2.0 0.3 Osteopenia FEM NECK 0.722 -1.1 1.4 Osteopenia 10-year Fracture Risk: 1 FRAX(R) Version 3.08. Fracture probability calculated for an untreated patient. Fracture probability may be lower if the patient has received treatment. Major Osteoporotic Fracture 10% Hip Fracture 2.7% RATE OF CHANGE(SPINE): BMD values have increased 9.0% from previous RATE OF CHANGE(TOTAL HIP): BMD values have decreased 15.9% from previous RATE OF CHANGE(FEMORAL NECK): BMD values have decreased 13.4% from previous Impression: The patient has osteopenia as determined by WHO criteria. WSN: [id number] Ordering Physician: Lucy Britt Dictated By: Bob Lloyd MD Dictated Date/Time: 05/28/25 2:54 pm Reviewed By: Bob Lloyd MD Signed By: Bob Lloyd MD Signed Date/Time: 05/28/25 2:54 pm Transcribed By: AYDEE Transcribed Date/Time: 05/28/25 2:53 pm Patient Class: Outpatient NATHALIA Post, [facility] 05/30/2025 16:25:35 Xr, Lumbar Spine : Lumbar Spine 2 or 3 Views Reason: pain COMPARISON: None. FINDINGS: No bone lesions or fractures. Generalized osteopenia Generally mild multifocal degenerative disc endplate spurring and disc space narrowing except for moderate narrowing at L4-L5. Normal alignment. No spondylolysis or spondylolisthesis. Normal soft tissues. IMPRESSION: No acute findings. Osteopenia. Degenerative disc disease primarily L4-L5. WSN: [id number] Ordering Physician: Lenny Diaz Dictated By: Smith Melissa MD Dictated Date/Time: 07/01/25 3:37 pm Reviewed By: Smith Melissa MD Signed By: Smith Melissa MD Signed Date/Time: 07/01/25 3:37 pm Transcribed By: AYDEE Transcribed Date/Time: 07/01/25 3:35 pm Patient Class: Outpatient Lenny Joe MT-C [address], [address], [facility] 07/16/2025 14:11:38 Xr, Hip + Pelvis, Unilateral, 2 Or 3 View : AP pelvis and right hip 3 views dated July 15, 2025. Comparison films are from June 30, 2025. HISTORY: Right hip pain. FINDINGS: This examination shows no evidence of fracture or dislocation. There is loss of joint space in both hips with minimal subchondral sclerosis and osteophyte formation. IMPRESSION: Degenerative changes. No evidence of fracture or dislocation. Thank you for allowing me to participate in the care of this patient. WSN: [id number] Ordering Physician: Nuris Guillen Dictated By: Ge Cid MD Dictated Date/Time: 10/16/25 9:51 am Reviewed By: Ge Cid MD Signed By: Ge Cid MD Signed Date/Time: 10/16/25 9:51 am Transcribed By: AYDEE Transcribed Date/Time: 10/16/25 9:51 am Patient Class: Outpatient Cris Quinteros octavio [facility] 10/20/2025 09:18:34 Problems Name Problem SNOMED Code Status Onset Date Resolution Date Notes Provider Name and Address Organization Details Recorded Time Respirat ory crackles 23384257 Completed 10/05/2016 Kenney cunningham [facility] 6 11:47:07 Influenz a 0108033 Completed 10/05/2016 Kenney cunningham [facility] 6 11:47:10 Cough [id number] Completed 10/05/2016 MARC Escobar [facility] 6 11:06:03 Otitis media [id number] Completed 10/05/2016 MARC Escobar, [facility] 6 11:06:08 Sinusiti s [id number] Completed 10/05/2016 MARC Escobar, [facility] 6 11:05:57 Diarrhea 43756826 Completed 10/05/2016 MARC Escobar [facility] 6 11:06:12 Stomach cramps 80116202 Completed 10/05/2016 MARC Escobar, [facility] 6 11:06:16 Clostrid ium difficil e colitis 012161364 Completed 10/06/2017 Kenney cunningham [facility] 7 11:31:32 Abdomina l pain 34914748 Completed 10/06/2017 MARC Escobar, [facility] 7 11:04:19 Clostrid ioides difficil e infectio n 559107118 Completed 07/22/2024 LUCY BRITT MD [address], [place], [address] , [facility] 4 07:25:47 Hypercho lesterol emia 69652489 Completed 08/04/2021 Kenney LaoSelena cunningham [facility] 1 14:08:56 Advance care planning Active Not Available [facility] 3 13:25:11 Acute secretor y otitis media 445867453 Completed 200805/27/2014 IMPRESSI ON: RIGHT TM ALSO WITH SINUSITI S; RECORDED 12/11/19 09 1:21PM BY BILLY ADAMS ON/ADDEN DUM Not Available [facility] 4 15:10:13 General examinat ion of patient Completed 200805/27/2014 IMPRESSI ON: PAP, MAMMO AND COLONOSC OPY UTD AND NL, EXERCISE S DAILY; RECORDED 12/11/19 09 1:21PM BY QUAN ADAMSATI ON/ADDEN DUM Not Available [facility] 4 15:10:14 Malaise and fatigue 259315071 Completed 200805/27/2014 RECORDED 12/11/19 09 2:16PM BY QUAN CHAPMANATI ON/ADDEN DUM Not Available [facility] 4 15:10:14 Acute secretor y otitis media 654490842 Completed 200806/16/2014 IMPRESSI ON: RIGHT TM ALSO WITH SINUSITI S; RECORDED 12/11/19 09 1:21PM BY QUAN ADAMSATI ON/ADDEN DUM Not Available [facility] 4 07:01:51 General examinat ion of patient Completed 200806/16/2014 IMPRESSI ON: PAP, MAMMO AND COLONOSC OPY UTD AND NL, EXERCISE S DAILY; RECORDED 12/11/19 09 1:21PM BY QUAN ADAMSATI ON/ADDEN DUM Not Available [facility] 4 07:01:51 Malaise and fatigue 068479398 Completed 200806/16/2014 RECORDED 12/11/19 09 2:16PM BY QUAN CHAPMANATI ON/ADDEN DUM Not Available [facility] 4 07:01:51 Screenin g for malignan t neoplasm of colon Completed 200805/27/2014 RECORDED 06/10/20 09 2:02PM BY QUAN MARIEATI ON/ADDEN DUM Not Available [facility] 4 15:10:15 Screenin g for malignan t neoplasm of colon Completed 200806/16/2014 RECORDED 06/10/20 09 2:02PM BY QUAN MARIEATI ON/ADDEN DUM Not Available [facility] 4 07:01:51 Active or passive immuniza tion Completed 200905/27/2014 RECORDED 11/12/19 10 1:42PM BY KENNEY Ordonez MD, OFFICE VISIT Not Available [facility] 4 15:10:14 Active or passive immuniza tion Completed 200906/16/2014 RECORDED 11/12/19 10 1:42PM BY KENNEY Ordonez MD, OFFICE VISIT Not Available [facility] 4 07:01:51 Influenz a vaccine needed [id number] 06 Completed 200905/27/2014 DATE: 07/28/20 10; RECORDED 11/12/19 13 11:19AM BY BILLY ESCOBAR ON/ADDEN DUM MARC Escobar, [facility] 6 11:05:45 Administ ration of viral vaccine Completed 200905/27/2014 DATE: 07/28/20 10; RECORDED 11/12/19 13 11:20AM BY BILLY ESCOBAR ON/ADDEN DUM Not Available [facility] 4 15:10:14 Influenz a vaccine needed [id number] 06 Completed 200906/16/2014 DATE: 07/28/20 10; RECORDED 11/12/19 13 11:19AM BY BILLY ESCOBAR ON/ADDEN DUM MARC Escobar, [facility] 6 11:05:45 Administ ration of viral vaccine Completed 200906/16/2014 DATE: 07/28/20 10; RECORDED 11/12/19 13 11:20AM BY BILLY ESCOBAR ON/ADDEN DUM Not Available [facility] 4 07:01:51 Screenin g for malignan t neoplasm of breast Completed 201205/27/2014 RECORDED 11/12/19 13 11:19AM BY BILLY ESCOBAR ON/ADDEN DUM MARC Escobar, [facility] 7 11:04:35 Elevated blood-pr essure reading without diagnosi s of hyperten chris 373375607 Completed 201205/27/2014 RECORDED 11/12/19 13 11:19AM BY BILLY ESCOBAR ON/ADDEN DUM Not Available [facility] 4 15:10:14 [facility] hyperten chris 69409393 Completed 201205/27/2014 RECORDED 11/12/19 13 11:19AM BY BILLY ESCOBAR ON/ADDEN DUM Eloina Ann MA null, [facility] 0 10:01:52 Adult health examinat ion Completed 201205/27/2014 IMPRESSI ON: PAP AND MAMMOT UTD, RESTART EXERCISE LOWER PORTIONS ; RECORDED 11/12/19 13 11:19AM BY BILLY ESCOBAR ON/ADDEN DUM Alyssa Billy MA null, [facility] 6 11:05:52 Screenin g for malignan t neoplasm of breast Completed 201206/16/2014 RECORDED 11/12/19 13 11:19AM BY BILLY ESCOBAR ON/ADDEN DUM Alyssa Billy MA null, [facility] 7 11:04:35 Elevated blood-pr essure reading without diagnosi s of hyperten chris [id number] Completed 201206/16/2014 RECORDED 11/12/19 13 11:19AM BY BILLY ESCOBAR ON/ADDEN DUM Not Available [facility] 4 07:01:51 Spontane ous ecchymos is [id number] Completed 201205/27/2014 RECORDED 10/23/20 13 11:13AM BY GIOVANY PANDEY MA, BILLY ON/ADDEN DUM Not Available [facility] 4 15:10:13 Closed fracture of foot 931005687 Completed 201205/27/2014 IMPRESSI ON: WITH WALKING, CONTINUE WSEARING WALKING BOOT; RECORDED 10/23/20 13 11:13AM BY GIOVANY PANDEY MA, BILLY ON/ADDEN DUM Not Available [facility] 4 15:10:14 Administ ration of tetanus vaccine Completed 201205/27/2014 RECORDED 10/23/20 13 11:13AM BY GIOVANY PANDEY MA, BILLY ON/ADDEN DUM Not Available [facility] 4 15:10:15 Joint pain in ankle and foot Completed 201205/27/2014 RECORDED 10/23/20 13 11:13AM BY GIOVANY PANDEY MA, ANNOTATI ON/ADDEN DUM Not Available [facility] 4 15:10:15 Portillo [id number] Completed 201205/27/2014 RECORDED 10/23/20 13 11:13AM BY GIOVANY PANDEY MA, QUANATI ON/ADDEN DUM MARC Ibanez [facility] 0 10:02:02 Adult health examinat ion Completed 201210/05/2016 IMPRESSI ON: PAP, MAMMO AND COLONOSC OPY UTD AND ALL NL, PT IS ACITVE , EXERCISE S AND FEELS WELL.IS ON CALCIUM AND VITAMIN D; RECORDED 10/23/20 13 12:06PM BY KENNEY Ordonez MD, OFFICE VISIT MARC Escobar [facility] 6 11:05:52 Spontane ous ecchymos is [id number] Completed 201206/16/2014 RECORDED 10/23/20 13 11:13AM BY GIOVANY PANDEY MA, QUANATI ON/ADDEN DUM Not Available [facility] 4 07:01:51 Closed fracture of foot 471896367 Completed 201206/16/2014 IMPRESSI ON: WITH WALKING, CONTINUE WSEARING WALKING BOOT; RECORDED 10/23/20 13 11:13AM BY GIOVANY PANDEY MA, BILLY ON/ADDEN DUM Not Available [facility] 4 07:01:51 Administ ration of tetanus vaccine Completed 201206/16/2014 RECORDED 10/23/20 13 11:13AM BY GIOVANY PANDEY MA, ANNOTATI ON/ADDEN DUM Not Available [facility] 4 07:01:51 Joint pain in ankle and foot Completed 201206/16/2014 RECORDED 10/23/20 13 11:13AM BY GIOVANY PANDEY MA, ANNOTATI ON/ADDEN DUM Not Available [facility] 4 07:01:51 Rosacea 699575788 Completed 201206/16/2014 RECORDED 10/23/20 13 11:13AM BY GIOVANY PANDEY MA, ANNOTATI ON/MARC Garcia, [facility] 0 10:02:02 Patient status finding [id number] Completed 201310/05/2016 RECORDED 04/03/20 14 11:48AM BY ALYSSA BILLY, OFFICE VISIT MARC Escobar, [facility] 6 11:05:41 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 e 492705574 Completed 201310/06/2017 IMPRESSI ON: ON ACTONEL, VIT D AND CALCIUM CONTINUE ; RECORDED 04/03/20 14 11:42AM BY ALYSSA BILLY, OFFICE VISIT Kenney cunningham [facility] 7 11:32:01 [facility] hyperten chris 73600385 Active 2013 Not Available [facility] 3 13:25:11 Influenz a vaccine needed [id number] 06 Completed 201310/05/2016 RECORDED 04/03/20 14 11:42AM BY ALYSSA BILLY, OFFICE VISIT MARC Escobar, [facility] 6 11:05:45 Herpes zoster 8635132 Completed 201304/02/2025 LUCY BRITT MD [address] [address], [place], [address] [facility] 5 07:12:10 Pure hypercho lesterol emia 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 Completed 201310/06/2017 IMPRESSI ON: CHECK FASTING; RECORDED 04/03/20 14 11:42AM BY ALYSSA BILLY, OFFICE VISIT Kenney cunningham [facility] 7 11:31:28 Screenin g for malignan t neoplasm of breast Completed 201310/06/2017 RECORDED 04/03/20 14 11:42AM BY ALYSSA BILLY, OFFICE VISIT MARC Escobar, [facility] 7 11:04:35 Portillo [id number] Active 2013 Not Available [facility] 3 13:25:10 Adult health examinat ion Completed 201306/16/2014 IMPRESSI ON: PAP, MAMMO AND COLONOSC OPY UTD AND ALL NL, PT IS ACITVE , EXERCISE S AND FEELS WELL.IS ON CALCIUM AND VITAMIN D; RECORDED 04/03/20 14 11:38AM BY ALYSSA BILLY ANNOTATI ON/ADDEN DUM MARC Escobar, [facility] 6 11:05:52 Advance directiv e discusse d with patient [id number] Completed 201910/26/2020 MARC Ibanez, [facility] 0 10:02:08 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 Not Available [facility] 3 13:25:10 Chronic kidney disease stage 3 218271137 Completed 202008/04/2021 Kenney cunningham, [facility] 1 14:09:00 Atrial fibrilla tion 30169053 Active 2021 Not Available [facility] 3 13:25:10 Hyperten chris monitori ng status 481115560 Active 2021 [facility] - active Not Available [facility] 3 13:25:10 COVID-19 967702224 Completed 202101/25/2024 LUCY BRITT MD [address], [place], [address] , [facility] 4 07:21:29 Osteopen ia 271972774 Active 2024 LUCY BRITT MD [address], [place], [address] , [facility] 5 20:07:29 Chronic low back pain 541425625 Active 2024 Lenny Diaz PA-C [address], [place], [address] , [facility] 5 12:38:53 Problem Notes None recorded. Procedures Surgical History Date Name Laterality Status Provider Name and Address Organization Details Recorded Time 5 Most Recent Mammogram completed Naomi Sharma [facility] 05/06/2025 13:49:19 5 Mammogram screening completed Naomi Sharma [facility] 05/06/2025 13:48:36 5 Advanced Care Planning completed LUCY BRITT MD [address] [facility] [address], [place], [address], [facility] 04/02/2025 07:10:42 4 Mammogram Diagnostic Bilateral completed Carola Hannon [facility] 03/26/2024 15:28:17 0 Six-Item Cognitive Test completed Alyssa Billy MA [facility] 04/23/2020 14:43:36 9 Mammogram one breast completed Cristiana Palma [facility] 03/20/2019 15:00:31 8 Date of Last Pap Smear completed Alyssa Billy MA [facility] 08/29/2018 08:53:19 7 Fall Risk Assessment completed Alyssa Billy MA [facility] 10/06/2017 11:12:29 7 Mini-Cog Test completed Alyssa Billy MA [facility] 10/06/2017 11:12:01 7 Advanced Care Planning completed Kenney saunders [facility] 10/06/2017 11:30:30 6 Fall Risk Assessment completed Alyssa Billy MA [facility] 10/05/2016 11:12:30 6 Mini-Cog Test completed Alyssa Billy MA [facility] 10/05/2016 11:11:27 6 Advanced Care Planning completed Kenney saunders [facility] 10/05/2016 12:00:31 5 Fall Risk Assessment completed Alyssa Solorzanostacy MARC [facility] 09/28/2015 10:34:57 5 Mini-Cog Test completed Alyssa Billy [facility] 09/28/2015 10:37:39 Imaging Results None recorded. Procedure [...] 11/15 completed RECORDED 11/15/19 11 10:59AM BY ALYSSA BILLY, OFFICE VISIT;DR Sulaiman JAUREGUI Not Available [...] 07/04 completed RECORDED 07/04/20 07 9:42AM BY KENNEY Ordonez MD, MEDICATI ON AUTO-SIN CTIVATIO N; [...] 11/15 completed RECORDED 11/15/19 11 10:59AM BY ALYSSA BILLY, OFFICE VISIT; Not Available Not Available [...] 11/17 completed RECORDED 01/24/20 12 1:40PM BY KENNEY Ordonez MD, MEDICATI ON AUTO-SIN CTIVATIO N; [...] and Address Organization Details Last Updated DateTime 162.56 cm 26.6 kg/m2 26177.8 2 g 89 /min 96 % 98.2 [degF] 129/84 mm[Hg] Jatinder mcgee MA [facility] 13:54:49 Date Recorded Heart rate Heart rate Systolic And Diastolic Systolic And Diastolic Provider Name and Address Organization Details Last Updated DateTime 04/05/2025 87 /min 79 /min 145/85 mm[Hg] 145/82 mm[Hg] Not Available [facility] 04/05/2025 12:12:38 Date Recorded Heart rate Heart rate Systolic And Diastolic Systolic And Diastolic Provider Name and Address Organization Details Last Updated DateTime 04/10/2025 101 /min 93 /min 146/82 mm[Hg] 140/83 mm[Hg] Not Available [facility] 04/10/2025 11:50:35 Date Recorded Heart rate Systolic And Diastolic Provider Name and Address Organization Details Last Updated DateTime 04/12/2025 90 /min 136/79 mm[Hg] Not Available [facility] 04/16/2025 17:28:35 Date Recorded Heart rate Heart rate Systolic And Diastolic Systolic And Diastolic Provider Name and Address Organization Details Last Updated DateTime 04/14/2025 86 /min 92 /min 133/81 mm[Hg] 135/81 mm[Hg] Not Available [facility] 04/16/2025 17:28:35 Date Recorded Heart rate Systolic And Diastolic Provider Name and Address Organization Details Last Updated DateTime 04/16/2025 80 /min 131/81 mm[Hg] Not Available [facility] 04/16/2025 17:28:34 Date Recorded Heart rate Systolic And Diastolic Provider Name and Address Organization Details Last Updated DateTime 04/20/2025 88 /min 142/85 mm[Hg] Not Available [facility] 04/20/2025 18:35:35 Date Recorded Heart rate Systolic And Diastolic Provider Name and Address Organization Details Last Updated DateTime 04/21/2025 80 /min 136/85 mm[Hg] Not Available [facility] 04/21/2025 12:42:37 Date Recorded Heart rate Systolic And Diastolic Provider Name and Address Organization Details Last Updated DateTime 04/28/2025 84 /min 124/80 mm[Hg] Not Available [facility] 04/28/2025 20:00:34 Date Recorded Heart rate Systolic And Diastolic Provider Name and Address Organization Details Last Updated DateTime 05/02/2025 79 /min 137/80 mm[Hg] Not Available [facility] 05/02/2025 11:41:37 Date Recorded Heart rate Systolic And Diastolic Provider Name and Address Organization Details Last Updated DateTime 05/03/2025 79 /min 137/80 mm[Hg] Not Available [facility] 05/03/2025 18:47:34 Date Recorded Heart rate Systolic And Diastolic Provider Name and Address Organization Details Last Updated DateTime 05/05/2025 81 /min 135/80 mm[Hg] Not Available [facility] 05/05/2025 20:28:36 Date Recorded Heart rate Heart rate Systolic And Diastolic Systolic And Diastolic Provider Name and Address Organization Details Last Updated DateTime 05/09/2025 82 /min 84 /min 147/90 mm[Hg] 157/90 mm[Hg] Not Available [facility] 05/10/2025 19:37:37 Date Recorded Heart rate Heart rate Systolic And Diastolic Systolic And Diastolic Provider Name and Address Organization Details Last Updated DateTime 05/10/2025 82 /min 82 /min 157/90 mm[Hg] 142/85 mm[Hg] Not Available [facility] 05/10/2025 19:38:34 Date Recorded Heart rate Systolic And Diastolic Provider Name and Address Organization Details Last Updated DateTime 05/12/2025 84 /min 141/86 mm[Hg] Not Available [facility] 05/12/2025 17:33:36 Date Recorded Heart rate Systolic And Diastolic Provider Name and Address Organization Details Last Updated DateTime 05/13/2025 82 /min 129/74 mm[Hg] Not Available [facility] 05/13/2025 13:02:39 Date Recorded Heart rate Systolic And Diastolic Provider Name and Address Organization Details Last Updated DateTime 05/15/2025 81 /min 128/80 mm[Hg] Not Available [facility] 05/15/2025 19:59:35 Date Recorded Heart rate Heart rate Systolic And Diastolic Systolic And Diastolic Provider Name and Address Organization Details Last Updated DateTime 05/16/2025 86 /min 80 /min 132/78 mm[Hg] 130/68 mm[Hg] Not Available [facility] 05/16/2025 19:54:37 Date Recorded Heart rate Systolic And Diastolic Provider Name and Address Organization Details Last Updated DateTime 05/19/2025 90 /min 142/87 mm[Hg] Not Available [facility] 05/23/2025 11:09:35 Date Recorded Heart rate Systolic And Diastolic Provider Name and Address Organization Details Last Updated DateTime 05/23/2025 84 /min 154/82 mm[Hg] Not Available [facility] 05/23/2025 11:09:38 Date Recorded Heart rate Systolic And Diastolic Provider Name and Address Organization Details Last Updated DateTime 05/28/2025 81 /min 155/82 mm[Hg] Not Available [facility] 05/28/2025 17:17:26 Date Recorded Heart rate Systolic And Diastolic Provider Name and Address Organization Details Last Updated DateTime 06/03/2025 74 /min 155/87 mm[Hg] Not Available [facility] 06/04/2025 11:59:29 Date Recorded Heart rate Heart rate Systolic And Diastolic Systolic And Diastolic Provider Name and Address Organization Details Last Updated DateTime 06/04/2025 89 /min 82 /min 146/86 mm[Hg] 140/74 mm[Hg] Not Available [facility] 06/04/2025 11:59:30 Date Recorded Heart rate Heart rate Systolic And Diastolic Systolic And Diastolic Provider Name and Address Organization Details Last Updated DateTime 06/05/2025 92 /min 84 /min 150/85 mm[Hg] 139/83 mm[Hg] Not Available [facility] 06/05/2025 12:13:30 Date Recorded Heart rate Heart rate Systolic And Diastolic Systolic And Diastolic Provider Name and Address Organization Details Last Updated DateTime 06/06/2025 88 /min 94 /min 144/77 mm[Hg] 144/83 mm[Hg] Not Available [facility] 06/06/2025 12:27:30 Date Recorded Heart rate Heart rate Systolic And Diastolic Systolic And Diastolic Provider Name and Address Organization Details Last Updated DateTime 06/10/2025 90 /min 83 /min 139/77 mm[Hg] 140/77 mm[Hg] Not Available [facility] 06/10/2025 12:09:27 Date Recorded Heart rate Heart rate Systolic And Diastolic Systolic And Diastolic Provider Name and Address Organization Details Last Updated DateTime 06/14/2025 83 /min 81 /min 144/77 mm[Hg] 154/89 mm[Hg] Not Available [facility] 06/14/2025 11:14:28 Date Recorded Heart rate Heart rate Systolic And Diastolic Systolic And Diastolic Provider Name and Address Organization Details Last Updated DateTime 06/19/2025 79 /min 90 /min 133/74 mm[Hg] 140/81 mm[Hg] Not Available [facility] 12:13:30 Date Recorded Heart rate Systolic And Diastolic Provider Name and Address Organization Details Last Updated DateTime 06/20/2025 89 /min 147/88 mm[Hg] Not Available [facility] 06/21/2025 12:53:30 Date Recorded Heart rate Systolic And Diastolic Provider Name and Address Organization Details Last Updated DateTime 06/21/2025 89 /min 122/73 mm[Hg] Not Available [facility] 06/21/2025 12:53:28 Date Recorded Heart rate Systolic And Diastolic Provider Name and Address Organization Details Last Updated DateTime 06/23/2025 88 /min 122/73 mm[Hg] Not Available [facility] 06/23/2025 12:49:26 Date Recorded Body height Body mass index (BMI) Body weight Oxygen saturation Heart rate Body temperature Systolic And Diastolic Systolic And Diastolic Provider Name and Address Organization Details Last Updated DateTime 162.56 cm 26.8 kg/m2 64137.8 1 g 100 % 88 /min 97.5 [degF] 161/83 mm[Hg] 165/88 mm[Hg] Alyssa Billy MA [facility] 16:00:53 Date Recorded Heart rate Systolic And Diastolic Provider Name and Address Organization Details Last Updated DateTime 06/28/2025 81 /min 129/73 mm[Hg] Not Available [facility] 06/28/2025 13:26:27 Date Recorded Heart rate Systolic And Diastolic Provider Name and Address Organization Details Last Updated DateTime 07/01/2025 86 /min 129/76 mm[Hg] Not Available [facility] 07/01/2025 13:20:27 Date Recorded Heart rate Systolic And Diastolic Provider Name and Address Organization Details Last Updated DateTime 07/04/2025 92 /min 130/78 mm[Hg] Not Available [facility] 07/04/2025 13:41:31 Date Recorded Heart rate Systolic And Diastolic Provider Name and Address Organization Details Last Updated DateTime 07/07/2025 79 /min 144/78 mm[Hg] Not Available [facility] 07/07/2025 12:47:26 Date Recorded Heart rate Systolic And Diastolic Provider Name and Address Organization Details Last Updated DateTime 07/11/2025 88 /min 127/82 mm[Hg] Not Available [facility] 07/11/2025 12:24:35 Date Recorded Heart rate Systolic And Diastolic Provider Name and Address Organization Details Last Updated DateTime 07/15/2025 87 /min 130/81 mm[Hg] Not Available [facility] 07/15/2025 12:10:31 Date Recorded Body height Body mass index (BMI) Body weight Oxygen saturation Heart rate Body temperature Systolic And Diastolic Systolic And Diastolic Provider Name and Address Organization Details Last Updated DateTime 162.56 cm 26.3 kg/m2 34405.6 3 g 98 % 92 /min 97.5 [degF] 145/89 mm[Hg] 126/73 mm[Hg] Alyssa Billy MA [facility] 13:50:41 Date Recorded Heart rate Systolic And Diastolic Provider Name and Address Organization Details Last Updated DateTime 07/16/2025 86 /min 123/79 mm[Hg] Not Available [facility] 07/16/2025 12:03:28 Date Recorded Heart rate Heart rate Systolic And Diastolic Systolic And Diastolic Provider Name and Address Organization Details Last Updated DateTime 07/18/2025 99 /min 96 /min 121/66 mm[Hg] 121/79 mm[Hg] Not Available [facility] 07/20/2025 16:39:28 Date Recorded Heart rate Systolic And Diastolic Provider Name and Address Organization Details Last Updated DateTime 07/20/2025 85 /min 141/79 mm[Hg] Not Available [facility] 07/20/2025 16:40:26 Date Recorded Heart rate Systolic And Diastolic Provider Name and Address Organization Details Last Updated DateTime 07/26/2025 83 /min 141/75 mm[Hg] Not Available [facility] 07/26/2025 12:41:31 Date Recorded Heart rate Systolic And Diastolic Provider Name and Address Organization Details Last Updated DateTime 07/29/2025 88 /min 141/87 mm[Hg] Not Available [facility] 07/29/2025 11:18:29 Date Recorded Heart rate Systolic And Diastolic Provider Name and Address Organization Details Last Updated DateTime 08/05/2025 85 /min 123/80 mm[Hg] Not Available [facility] 08/05/2025 13:00:27 Date Recorded Heart rate Heart rate Systolic And Diastolic Systolic And Diastolic Provider Name and Address Organization Details Last Updated DateTime 08/06/2025 93 /min 78 /min 127/76 mm[Hg] 133/82 mm[Hg] Not Available [facility] 08/06/2025 20:33:29 Date Recorded Heart rate Heart rate Systolic And Diastolic Systolic And Diastolic Provider Name and Address Organization Details Last Updated DateTime 08/09/2025 92 /min 88 /min 138/87 mm[Hg] 138/81 mm[Hg] Not Available [facility] 08/09/2025 12:29:31 Date Recorded Heart rate Systolic And Diastolic Provider Name and Address Organization Details Last Updated DateTime 08/10/2025 86 /min 128/64 mm[Hg] Not Available [facility] 08/10/2025 21:24:27 Date Recorded Heart rate Heart rate Systolic And Diastolic Systolic And Diastolic Provider Name and Address Organization Details Last Updated DateTime 08/14/2025 102 /min 99 /min 133/81 mm[Hg] 134/82 mm[Hg] Not Available [facility] 08/14/2025 12:23:31 Date Recorded Heart rate Systolic And Diastolic Provider Name and Address Organization Details Last Updated DateTime 08/16/2025 100 /min 134/81 mm[Hg] Not Available [facility] 08/27/2025 20:48:29 Date Recorded Heart rate Systolic And Diastolic Provider Name and Address Organization Details Last Updated DateTime 08/27/2025 101 /min 127/78 mm[Hg] Not Available [facility] 08/27/2025 20:49:26 Date Recorded Heart rate Heart rate Heart rate Systolic And Diastolic Systolic And Diastolic Systolic And Diastolic Provider Name and Address Organization Details Last Updated DateTime 117 /min 112 /min 113 /min 127/83 mm[Hg] 132/84 mm[Hg] 120/83 mm[Hg] Not Available [facility] 12:00:30 Date Recorded Heart rate Systolic And Diastolic Provider Name and Address Organization Details Last Updated DateTime 09/04/2025 106 /min 125/83 mm[Hg] Not Available [facility] 09/04/2025 12:24:30 Date Recorded Heart rate Systolic And Diastolic Provider Name and Address Organization Details Last Updated DateTime 09/05/2025 98 /min 132/81 mm[Hg] Not Available [facility] 09/05/2025 12:11:26 Date Recorded Heart rate Systolic And Diastolic Provider Name and Address Organization Details Last Updated DateTime 09/07/2025 97 /min 133/83 mm[Hg] Not Available [facility] 09/07/2025 10:20:31 Date Recorded Heart rate Systolic And Diastolic Provider Name and Address Organization Details Last Updated DateTime 09/09/2025 93 /min 132/78 mm[Hg] Not Available [facility] 09/09/2025 12:39:26 Date Recorded Heart rate Systolic And Diastolic Provider Name and Address Organization Details Last Updated DateTime 09/10/2025 88 /min 136/83 mm[Hg] Not Available [facility] 09/10/2025 20:41:28 Date Recorded Heart rate Heart rate Systolic And Diastolic Systolic And Diastolic Provider Name and Address Organization Details Last Updated DateTime 09/14/2025 84 /min 87 /min 139/75 mm[Hg] 150/95 mm[Hg] Not Available [facility] 09/14/2025 10:12:31 Date Recorded Heart rate Systolic And Diastolic Provider Name and Address Organization Details Last Updated DateTime 09/17/2025 93 /min 132/77 mm[Hg] Not Available [facility] 09/17/2025 12:07:26 Date Recorded Heart rate Heart rate Heart rate Systolic And Diastolic Systolic And Diastolic Systolic And Diastolic Provider Name and Address Organization Details Last Updated DateTime 105 /min 98 /min 88 /min 138/81 mm[Hg] 137/78 mm[Hg] 137/78 mm[Hg] Not Available [facility] 20:35:28 Date Recorded Heart rate Systolic And Diastolic Provider Name and Address Organization Details Last Updated DateTime 09/19/2025 86 /min 121/76 mm[Hg] Not Available [facility] 09/19/2025 12:17:26 Date Recorded Heart rate Systolic And Diastolic Provider Name and Address Organization Details Last Updated DateTime 09/20/2025 84 /min 120/77 mm[Hg] Not Available [facility] 09/20/2025 12:14:27 Date Recorded Heart rate Systolic And Diastolic Provider Name and Address Organization Details Last Updated DateTime 09/22/2025 90 /min 122/77 mm[Hg] Not Available [facility] 09/22/2025 12:47:29 Date Recorded Heart rate Heart rate Systolic And Diastolic Systolic And Diastolic Provider Name and Address Organization Details Last Updated DateTime 09/25/2025 88 /min 96 /min 122/70 mm[Hg] 122/70 mm[Hg] Not Available [facility] 09/25/2025 14:21:28 Date Recorded Heart rate Systolic And Diastolic Provider Name and Address Organization Details Last Updated DateTime 09/30/2025 98 /min 135/76 mm[Hg] Not Available [facility] 10/04/2025 12:16:31 Date Recorded Heart rate Systolic And Diastolic Provider Name and Address Organization Details Last Updated DateTime 10/04/2025 87 /min 131/76 mm[Hg] Not Available [facility] 10/04/2025 12:16:26 Date Recorded Heart rate Provider Name an d Address Organization Details Last Updated DateTime 10/06/2025 97 /min LUCY Oliva MD [address], [address], [facility] 10/06/2025 14:52:39 Date Recorded Body height Body mass index (BMI) Body weight Heart rate Oxygen saturation Body temperature Systolic And Diastolic Systolic And Diastolic Provider Name and Address Organization Details Last Updated DateTime 162.56 cm 25.7 kg/m2 13708.8 6 g 106 /min 96 % 98.1 [degF] 142/84 mm[Hg] 140/80 mm[Hg] Charleen Bernal MA [facility] 14:24:15 Date Recorded Heart rate Systolic And Diastolic Provider Name and Address Organization Details Last Updated DateTime 10/10/2025 87 /min 131/76 mm[Hg] Not Available [facility] 10/10/2025 12:57:26 Date Recorded Body height Body mass index (BMI) Body weight Heart rate Oxygen saturation Body temperature Systolic And Diastolic Provider Name and Address Organization Details Last Updated DateTime 162.56 cm 25.7 kg/m2 56277.8 6 g 96 /min 99 % 97.9 [degF] 138/77 mm[Hg] Charlotte briseno MA [facility] 14:25:47 Date Recorded Heart rate Systolic And Diastolic Provider Name and Address Organization Details Last Updated DateTime 10/16/2025 101 /min 126/81 mm[Hg] Not Available [facility] 10/17/2025 11:14:26 Date Recorded Heart rate Systolic And Diastolic Provider Name and Address Organization Details Last Updated DateTime 10/17/2025 89 /min 146/86 mm[Hg] Not Available [facility] 10/17/2025 11:16:28 Date Recorded Heart rate Systolic And Diastolic Provider Name and Address Organization Details Last Updated DateTime 10/18/2025 94 /min 118/74 mm[Hg] Not Available [facility] 10/18/2025 17:15:27 Date Recorded Heart rate Heart rate Systolic And Diastolic Systolic And Diastolic Provider Name and Address Organization Details Last Updated DateTime 10/21/2025 88 /min 89 /min 144/86 mm[Hg] 134/72 mm[Hg] Not Available [facility] 10/21/2025 12:05:32 Social History Question Answer Notes LastModified by Organizat ion Details LastModified Time Tobacco Smoking Status [facility] 10:59:10 Is Blood Transfusion Acceptable In An Emergency? Yes Information not available 09/28/2015 What Is Your Level Of Caffeine Consumption? Occasional [email or web address] Information not available 09/04/2014 What Type Of Diet Are You Following? REGULAR [email or web address] Information not available 09/04/2014 Live Alone Or With Others? With Others [email or web address] Information not available 09/04/2014 Do You Take Precautions To Prevent Distracted Driving? Yes [email or web address] Information not available 09/28/2015 How Often Do You Need To Have Someone Help You When You Read Instructions, Pamphlets, Or Other Written Material From Your Doctor Or Pharmacy? Sometimes [email or web address] Information not available 09/28/2015 Have You Served In The ? No [email or web address] Information not available 04/23/2020 Have You Or [...] OUD But Is Possibly At Risk. No Information not available 08/04/2021 Have You Recently Traveled To A COVID-19 High Risk Area Or Gathering In The Last 10 Days? No [email or web address] Information not available 08/04/2021 What Was The Date Of Your Most Recent Tobacco Screening? 10/14/2025 Information not available 10/14/2025 What Is Your Relationship Status? [email or web address] Information not available 09/28/2015 Seat Belts Used Routinely Yes [email or web address] Information not available 09/04/2014 Smoke Alarm In Home Yes [email or web address] Information not available 09/04/2014 How Much Tobacco Do You Smoke? No Information not available 08/29/2018 General Stress Level Medium [email or web address] Information not available 09/04/2014 Do You Use Sunscreen Routinely? Yes [email or web address] Information not available 09/04/2014 How Many Years [...] is your level of alcohol consumption? Occasional Information not available 09/04/2014 Do you or have you ever used smokeless tobacco? Never used smokeless tobacco [email or web address] Information not available 04/23/2020 Are you currently employed? No Information not available 10/14/2025 Are you able to walk independently without assistance or assistive devices? YESWOREST [email or web address] Information not available 08/04/2021 Are you able to care for yourself independently? Yes [email or web address] Information not available 09/04/2014 Do you or have you ever used e-cigarettes or vape? Never used electronic cigarettes Information not available 04/23/2020 What is your exercise level? Occasional [email or web address] Information not available 08/04/2021 Mental Status None [...] mcg/0.3 mL dose 1 completed Vivien cunningham [facility] 08/10/2023 14:11:15 COVID-19, mRNA, LNP-S, PF, 30 mcg/0.3 mL dose 1 completed Vivien cunningham [facility] 08/10/2023 14:11:15 COVID-19, mRNA, LNP-S, PF, 30 mcg/0.3 mL dose 1 completed Vivien cunningham [facility] 08/10/2023 14:11:16 Influenza, high-dose, quadrivalent, PF 0 completed Vivien cunningham [facility] 08/10/2023 14:11:15 Influenza, high-dose, trivalent, PF 0 completed Vivien cunningham [facility] 08/10/2023 14:11:16 Influenza, split virus, quadrivalent, PF 5 completed Not Available [facility] 11/23/2019 02:22:02 Influenza, high-dose, trivalent, PF 6 [...] quadrivalent, PF 1 completed Vivien Garibay null, [facility] 08/10/2023 14:11:15 Influenza, split virus, trivalent, PF [...] 14:11:15 Influenza, adjuvanted, quadrivalent, PF 3 completed MARC Escobar, [facility] 07/23/2024 13:21:54 COVID-19, mRNA, LNP-S, bivalent, PF, 30 mcg/0.3 mL dose 3 completed MARC Escobar, [facility] 07/23/2024 13:21:54 COVID-19, mRNA, LNP-S, PF, 50 mcg/0.5 mL 3 completed MARC Escobar, [facility] 07/23/2024 13:21:54 COVID-19, mRNA, LNP-S, PF, 50 mcg/0.5 mL 4 completed MARC Goodman, [facility] 02/28/2025 13:12:25 Pneumococcal conjugate PCV21, polysaccharide [id number] conjugate, PF 5 completed Cris cunningham, [facility] 10/06/2025 13:53:21 COVID-19, mRNA, LNP-S, PF, 10 mcg/0.2 mL 5 completed Not Available [facility] 10/14/2025 14:06:28 Influenza, high-dose, trivalent, PF 5 completed Not Available [facility] 10/14/2025 14:06:28 Influenza, split virus, trivalent, preservative [...] trivalent, preservative 2 completed Vivien Garibay null, [facility] 08/10/2023 14:11:16 Influenza, split virus, trivalent, preservative 3 completed Vivien Garibay null, [facility] 08/10/2023 14:11:16 Td (adult), 2 Lf tetanus toxoid, preservative free, adsorbed 2 completed Kenney stanleyo null, [facility] 10/20/2022 15:35:35 Influenza, high-dose, trivalent, PF 4 completed Alyssa Billy [place] null, [facility] 07/23/2024 13:36:20 Past Encounters Encounter ID Performer Location Encounter Start Date Encounter Closed Date Diagnosis/Indication Diagnosis SNOMED-CT Code Diagnosis ICD10 Code Diagnosis IMO Codes Diagnosis Note [id number] [facility] [address] [facility] [place] [address] 04/04/2007 00:00:00 [id number] [employer] [address] [facility] [place] [address] 04/04/2007 00:00:00 [id number] [employer] [facility] [address] [facility] [place] [address] 04/04/2007 00:00:00 [id number] [employer] [address] [facility] [place] [address] 04/04/2007 00:00:00 [id number] [employer] [facility] [address] [facility] [place] [address] 06/20/2007 00:00:00 [id number] [employer] [facility] [address] [facility] [place] [address] 06/20/2007 00:00:00 [id number] [employer] [facility] [address] [facility] [place] [address] 11/09/2006 00:00:00 [id number] [employer] [address] [facility] [place] [address] 11/09/2006 00:00:[address] [id number] [facility] [facility] [address] [place] [address] 11/09/2006 00:00:00 [id number] [facility] [address] [place] [address] 12/10/2007 00:00:00 [id number] [facility] [facility] [address] [place] [address] 12/10/2007 00:00:00 [id number] [employer] [address] [facility] [address] [facility] [address] [place] [address] 12/10/2007 00:00:00 [id number] [employer] [address] [facility] [address] [facility] [place] [address] 12/11/2008 00:00:00 [id number] [employer] [facility] [address] [facility] [place] [address] 04/16/2009 00:00:00 [id number] [employer] [address] [facility] [place] [address] 04/16/2009 00:00:00 [id number] [employer] [address] [facility] [place] [address] 04/16/2009 00:00:00 [id number] [facility] [address] [facility] [place] [address] 06/10/2009 00:00:00 [id number] [facility] [facility] [address] [place] [address] 08/28/2009 00:00:00 [id number] [employer] [address] [facility] [address] [place] [address] 08/28/2009 00:00:00 [id number] [employer] [address] [facility] [place] [address] 08/28/2009 00:00:00 [id number] [facility] [facility] [address] [place] [address] 11/12/2009 00:00:00 [id number] [facility] [facility] [address] [facility] [address] [place] [address] 11/12/2009 00:00:00 [id number] [employer] [address] [facility] [place] [address] 03/15/2010 00:00:00 [id number] [employer] [facility] [address] [facility] [place] [address] 03/15/2010 00:00:00 [id number] [employer] [address] [facility] [place] [address] 04/22/2010 00:00:00 [id number] [employer] [address] [facility] [place] [address] 04/22/2010 00:00:00 [id number] [employer] [address] [facility] [place] [address] 07/28/2010 00:00:00 [id number] [facility] [facility] [address] [facility] [place] [address] 07/28/2010 00:00:00 [id number] [facility] [facility] [address] [facility] [place] [address] 07/28/2010 00:00:00 [id number] [facility] [facility] [address] [facility] [place] [address] 11/15/2010 00:00:00 [id number] [facility] [facility] [address] [facility] [place] [address] 11/15/2010 00:00:00 [id number] [facility] [address] [facility] [place] [address] 11/15/2010 00:00:00 [id number] [facility] [address] [facility] [place] [address] 11/15/2010 00:00:00 [id number] [facility] [facility] [address] [place] [address] 03/31/2011 00:00:00 [id number] [facility] [address] [place] [address] 03/31/2011 00:00:00 [id number] [facility]ce [address] [place] [address] 08/01/2011 00:00:00 [id number] [facility] [address] [place] [address] 08/01/2011 00:00:00 [id number] [facility]ce [address] [place] [address] 11/16/2011 00:00:00 [id number] [facility]ce [address] [facility] [place] [address] 11/16/2011 00:00:00 [id number] [facility] [facility] [address] [facility],[address] [place] [address] 04/26/2012 00:00:00 [id number] [facility]ce [address] [facility] [address] [place] [address] 04/26/2012 00:00:00 [id number] [employer] erce [address] [facility] [address] [place] [address] 04/26/2012 00:00:00 [id number] [facility] erce [address] [place] [address] 04/26/2012 00:00:00 [id number] [facility] [facility] [address] [place] [address] 11/12/2012 00:00:00 [id number] [employer]ce [address] [facility],[address] [place] [address] 11/12/2012 00:00:00 [id number] [facility] erce [address] [place], [place] [address] 11/12/2012 00:00:00 [id number] [facility] [facility] [address] [facility] [place], [place] [address] 04/29/2013 00:00:00 [id number] [facility] [facility]ce [address] [facility] [place], [place] [address] 10/23/2013 00:00:00 [id number] [facility] [facility] [address] [facility] [place], [place] [address] 10/23/2013 00:00:00 [id number] [facility] [facility] [address] [facility] [place], [place] [address] 04/03/2014 00:00:00 [id number] [employer] erce [address] [facility],[address] [place], [place] [address] 04/03/2014 00:00:00 [id number] Kenney hatch MD Main Office [address] [address] [place], [place] [address] 09/04/2014 10:52:52 09/04/2014 11:31:41 Needs influenza immunization [id number] Essential hypertension [id number] BP's at [facility] al well controlled , no change in meds, check lytes 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 [id number] off meds for now, does a lot of walking, on vit D and calcium Rosacea [id number] continue cream [id number] DANGELO Mohr Main Office [address] [address] [place], [place] [address] 12/23/2014 10:47:43 12/23/2014 11:49:44 Respiratory crackles [id number] x-ray normal, no pneumonia Influenza [id number] Kenney hatch MD Main Office [address] [address] [place], [place] [address] 12/29/2014 14:05:19 12/29/2014 14:45:58 Influenza [id number] resolved but now with sinusitis and OM, will treat them Cough [id number] post viral, will use advair for cough Otitis media [id number] righ t OM, treat with augmentin Sinusitis [id number] sinusit is after the flu, will treat as below, sinus washings, [id number] Kenney hatch MD Main Office [address] [place] [address] 04/02/2015 13:00:09 04/02/2015 13:59:42 Diarrhea 06231635 concerning for C dif by hx, antibiotic s in 12/21, will treat empiricall y,check labs, return in 14 days at end of tx and see Kyrie, if still with symptoms consider prolonging treatment. pt also to take a probiotic daily Stomach cramps [id number] DANGELO Garcias Main Office [address] [place] [address] 04/16/2015 11:00:00 04/16/2015 11:53:45 Clostridium difficile colitis 180714469 Sx have resolved, she will finish 1 days of flagyl, continue probiotic, lots of fluids. Follow-up encounter [id number] Kenney hatch MD Main Office [address] [place] [address] 04/29/2015 11:10:43 04/29/2015 11:47:36 Stomach cramps 10825554 see below, will retreat for c dif if not improving in a few days Essential hypertension 32887534 BP's at home all well controlled , no change in meds, check lytes, refill med today Clostridiu m difficile colitis [id number] treated for 14 days, improved and now 4 days of mild symptoms, not likely recurrence , pt will lighten up on dairy, add a second probiotic for a few days, if not improving she will do a second course of flagy, if better hold off, if not resolving on flagyl pt to let me know, will refer to GI or change to chari ray [id number] Lore Diaz PA-C Main Office [address] [place] [address] 08/12/2015 11:37:13 08/12/2015 12:04:41 Diarrhea 21801973 R19.7 Recurrent diarrhea and abd. pain. H/o C. Dif. Will do stool tests and treat accordingl y. If recurrent C.Dif, consider ID referral. 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 PT. is clinically stable. I will contact ID for phone consult to see if any additional meds or interventi ons necessary before she is seen by them . Otherwise continue Flagyl 500 mg TID as prescribed for 14 days and see ID in consultati on. 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 is active doing well Needs infl uenza immunization 665110153 Z23 Essential hypertension 43112372 I10 BP's at home all well controlled , no change in meds, check lytes Hypercholesterolemia 136 09231 E78.2 [id number] Kenney hatch MD Main Office [address] [address] 03/31/2016 10:30:35 03/31/2016 11:11:47 Essential hypertension 10653794 I10 BP's well controlled , home BP numbers, continue meds [id number] Kenney hatch MD Main Office [address] [place] [address] 10/05/2016 10:51:42 10/05/2016 12:07:43 Adult health examination 156137802 Z00.00 mammogram utd, and colonoscop y utd, 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 is active doing well Influenza vaccine needed 0511425350 106 Z23 Essential hypertension 82172357 I10 BP's at home all well controlled , no change in meds, check lytes, refill med today Basal cell carcinoma of skin 479560999 C44.91 recent resection healing well Advance di rective discussed with patient 236140079 Z71.89 I gave pt MOLST form, and proxy, she will complete them and return them [id number] Kenney hatch MD Main Office [address] [facility] [address] [place] [address] 03/23/2017 11:28:03 03/23/2017 12:07:06 Essential hypertension 86516754 I10 BP at home a bit high at times, normal the rest, continue meds. return 6 months. [id number] Lenny Diaz PA-C Main Office [address] [address] [facility] [place] [place] [address] 05/31/2017 13:50:22 05/31/2017 14:43:46 Lyme disease 83285823 A69.20 [id number] Kenney hatch MD Main Office [address] [address] [place] [address] 10/06/2017 10:53:44 10/06/2017 12:13:30 Adult health examination 971511826 Z00.00 flu shot nad molst form addressed today, doing well Influenza vaccine needed 3703832786 106 Z23 Advance di rective discussed with patient 901532941 Z71.89 I discussed MOLST and health care proxy form. I gave pt MOLST form and proxy form, pt will fill out, discuss MOLST form with proxy and sign and return to our office Essential hypertension 01790657 I10 BP at home a bit high at times, normal the rest, continue meds. return 6 months. [id number] Kenney hatch MD Main Office [address] [address] [place] [address] 12/08/2017 11:01:49 12/08/2017 11:58:49 Essential hypertension 48692555 I10 BP much better with addition of norvasc, no SE continue [id number] Kenney hatch MD Main Office [address] [address] [place] [address] 03/14/2018 11:32:51 03/14/2018 12:06:28 Essential hypertension 18390454 I10 BP much better, continue meds, check labs [id number] Kenney hatch MD Main Office [address] [facility] [address] [facility] [place] [address] 10/15/2018 13:33:41 10/15/2018 14:25:55 Essential hypertension 79540364 I10 BP much better, continue meds, check labs Influenza vaccine needed 2329573790 106 Z23 Ankle pain 990236146 M25 .571 seems mechanical , xray and podiatry referral [id number] Kenney hatch MD Main Office [address] [address] [place] [address] 04/23/2020 14:12:34 04/23/2020 15:11:59 Adult health examination 940997994 Z00.00 no role for pap or colonoscop y will discuss if pt wants mammogram and if so she can arrange Essential hypertension 95360001 I10 BP well controlled . 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 will continue meds, check labs Tachycardia 7231071 R00. 0 pt has always had pulse in 90's-100 on BP checks, she gets nervous when she she gets her BP checked. She feels really well. no concern for [id number] Kenney hatch MD Main Office [address] [address] [place] [address] 08/04/2021 13:35:00 08/04/2021 14:26:43 Adult health examination 304177213 Z00.00 no role for pap or colonoscop y will be getting mammogram in 08/26 will get covid booster when available Essential hypertension 88092228 I10 does [facility] , BP's good, some up at home but overall ok if next visitt herehas been a trending upward I w ill increase norvasc at that time, pt feels well Influenza vaccine needed 8611623432 106 Z23 [id number] Kenney hatch MD Main Office [address] [place] [address] 02/03/2022 13:15:52 02/03/2022 14:01:31 Essential hypertension 94437348 I10 BP well controlled continue meds Atrial fibrillation 4943 6004 I48.91 new dx, asymptomat ic found on routine EKG, I sent EKG to cardiologi st Criselda Lewis and he confirmed it is afib will start eliquis, order echo and get to see cardiology in about a month. explained to pt and left message for daughter Nakita and she confirmed message was received. [id number] Kenney hatch MD Main Office [address] [place] [address] 03/11/2022 09:30:24 03/11/2022 10:14:18 Atrial fibrillation 73268093 I48.91 new dx last visit, asymptomat ic, HR stays in 80's, tolerating eliquis well, has echo then cardiology appt in a few weeks, continue meds, in afib today Essential hypertension 77768482 I10 BP well controlled continue meds use [facility] BP monitor 5 times a week Hypertensi on monitoring status 130245281 I10 active [id number] Nuris Guillen MD Main Office [address] [place] [address] 06/03/2022 11:56:23 06/03/2022 13:20:38 COVID-19 463235571 U07.1 Tylenol OTC, not to exceed package insert for pain or fever q6h advised prn.Sugar free Throat Lozenges otc prn for sore throatsalt water gargleadeq uate hydration enforcedsa line sprayshumi difier use enforced.p axlovid sent, last available kidney function reviewed, advised eua and potential side effects, tessalon 100 tid prn sentAdvise d to half elaquis dose with bleeding precaution . Advised to monitor BP and hold amlodipine if low. - return to normal meds after tx.also advised can use a teaspoon honey for cough advised to be mindful due to dm.isolati on precaution discussedp recaution advised if any difficulty breathing or tmax 103 > go to nearest ED [id number] Kenney hatch MD Main Office [address] [facility] [address] [place] [address] 10/20/2022 14:10:40 10/20/2022 14:47:08 Adult health examination 065381405 Z00.00 no role for pap or colonoscop y will get mammogram is active, cares for house Essential hypertension 41185561 I10 well controlled . check labs and continue meds Atrial fibrillation 4943 6004 I48.91 HR stays in 80's, tolerating eliquis well, has echo then cardiology appt in a few weeks, continue meds, is in afib today Requires a tetanus booster 244168440 Z23 Screening for malignant neoplasm of breast 472058337 Z12.39 pt to arrange [id number] LUCY BRITT MD Main Office [address] [facility] [address] [place] [address] 01/26/2024 14:06:53 01/26/2024 14:49:30 Adult health examination 182712607 Z00.00 Health Maintenanc e FemaleA) Patient was counseled on healthy diet, exercise and nutrition due to BMI of 26.6 B) ScreeningL ast Mammogram: start at age 50 stop at 76Date: 12/23/2022R esult: BIRADS-1Ne xt: aged out Last Pap smear: aged out Last Colonoscop y: aged out Last DEXA scan:Date: 10/11/2016 Result: osteopenia Next: Due, ordered C) Vaccines:I nfluenza: 08/08/2023T dAP: 10/20/2022 (Td)Zoster : 11/16/2011, 03/06/2012PC V13: 10/05/2016 PPSV23: 11/12/2009CO VID: 12/10/2020, 12/31/2020, 09/23/2021 D) Routine blood work and STI screening orderedE) Updated patient's history RTC in one year for annual exam or sooner if any acute complaints Atrial fibrillation 4943 6004 I48.91 - diagnosed in 02/2022- pt is following with cardiology , last seen on 10/2023- c/w metoprolol succinate ER 25mg QD- pt [...] with PA systolic pressure 35 to 40 mmHg. Essential hypertension 69653732 I10 - at goal- BP today 165/93 and on repeat 129/79- pt is on [facility] , BP at home average for December was 121/72- c/w amlodipine 5mg QD, lisinopril 40mg, furosemide [...] your ankles.>Cary ve trouble with your vision. Bone density finding 385 596568 M85.89 Squamous c ell carcinoma of skin 280024933 C44.92 - left lower leg- pt follows with derm every 6 months- wears protective clothing and avoids the sun Fatigue 70272246 R53.83 Z00.00 Hyperlipidemia 92156007 E78.5 Z00.00 FASTING Vitamin D deficiency 347 12952 E55.9 [id number] LUCY BRITT MD Main Office [address] [facility] [place] [address] 07/23/2024 13:00:47 07/23/2024 13:44:46 Atrial fibrillation 86587799 I48.91 - diagnosed in 02/2022- pt is following with cardiology , last seen on 10/2023- c/w metoprolol succinate ER 25mg QD- pt [...] with PA systolic pressure 35 to 40 mmHg. Essential hypertension 74930169 I10 - at goal- BP today 122/73- pt is on [facility] , BP at home average for June was 128/77- c/w amlodipine 5mg QD, lisinopril 40mg, furosemide [...] vision. Squamous c ell carcinoma of skin 868400299 C44.92 - left lower leg- pt follows with derm every 6 months- wears protective clothing and avoids the sun Influenza vaccine needed 7575812776 106 Z23 65 YEARS AND OLDER [id number] Los Riggins MD Main Office [address] [facility] [address] [place] [address] 02/28/2025 13:01:32 02/28/2025 13:38:32 Pneumonia 129236017 J18.9 00378477 x4-5 days of cough, bilateral wheezing, fatigue, dizziness- positive sick contact; sister with similar symptoms-h as been taking OTC robitussin which provides some cough relief-den ies of any fever, sob, chest pain, palpitatio ns-on PE: appreciate d crackles in bilateral lower lobes and wheezing in upper lobes-will provide prednisone and levofloxac in-discuss ed conservati ve measuremen ts-f/u in 1 week to recheck lungs [id number] LUCY BRITT MD Main Office [address] [place] [address] 04/02/2025 13:47:15 04/02/2025 14:27:24 General examination of patient 082346870 Z00.00 [id number] Health Maintenanc e FemaleA) Patient was counseled on healthy diet, exercise and nutrition due to BMI of 26.6 B) ScreeningL ast Mammogram: start at age 52 stop at 76Date: 4Re sult: BIRADS-2Ne xt: 04/2025 Last Pap smear: aged out Last Colonoscop y: aged out Last DEXA scan:Date: 10/11/2016 Result: osteopenia Next: Due, ordered -> not performed C) Vaccines:I nfluenza: 07/23/2024T dAP: 10/20/2022 (Td)Zoster : 11/16/2011, 03/06/2012PC V13: 10/05/2016 PPSV23: 11/12/2009CO VID: 12/10/2020, 12/31/2020, 09/23/2021 , 11/09/2022, 08/25/2023 , 08/29/2024 D) Routine blood work and STI screening orderedE) Updated patient's history RTC in one year for annual exam or sooner if any acute complaints Advance di merle discussed with patient 119232609 Z71.89 - HCP is on file- discussed POLTS Atrial fibrillation 6115 8064 I48.91 - diagnosed in 02/2022- pt is following with cardiology , last seen on 11/2024 -> no change in regimen- c/w metoprolol succinate ER 25mg QD- pt [...] mmHg.- no current bleeding risks Essential hypertension 82872351 I10 - at goal- BP today 129/84- pt is on [facility] , BP at home average for February was 138/81- c/w amlodipine 5mg QD, lisinopril 40mg, furosemide 40mg, and metoprolol succinate 25mg QD> pt is on potassium supplement ation> HCTZ was stopped and switched to furosemide from cardio Pt counselled on:-Dietar y Approaches to Stop Hypertensi on (DASH) is an eating plan rich in fruits, vegetables , whole grains, fish, poultry, nuts, legumes, and low-fat dairy. These foods are high in era nutrients such as potassium, magnesium, calcium, fiber, [...] vision. Squamous c ell carcinoma of skin 542576543 C44.92 - left lower leg- pt follows with derm every 6 months- wears protective clothing and avoids the sun Vitamin D deficiency 347 10525 E55.9 88184 Fatigue 51699921 R53.83 Z00.00 Hyperlipidemia 59722840 E78.5 Z00.00 FASTING Bone density finding 385 302094 M85.89 Screening for malignant neoplasm of breast 494075397 Z12.39 Abnormal gait 69770720 R 26.9 41995 - pt is having her left leg bow inward and also walking with wide based gait- pt referred to physical therapy- ordered MRI brain to ensure to hx of infarct- if negative will consider ortho for evaluation of the left hip At [facility] risk for falls 020492951 Z91.81 968061 - STEADI score of 6- pt referred to balance physical therapy 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 87356529 - pt currently declines hearing test or hearing aids- pt was told in the past that she is a candidate for hearing aids however does not currently want to wear them Seasonal allergy 8506943 04 J30.2 34550 [id number] Berry Dykes MD Main Office [address] [facility] [address] [place] [address] 06/25/2025 15:43:55 06/25/2025 17:05:39 Abnormal gait 19400705 R26.9 85449 Abnormal gait - pt is having her left leg bow inward and also walking with wide based gait - pt referred to physical therapy - ordered MRI brain to ensure to hx of infarct - if negative will consider ortho for evaluation of the left hip Ordered MRI, brain, w/o contrast 06.25.25 - pt had 10 PT sessions, doing hep - mildly getting worsemri brain stable - nothing acutewill get PMR eval, and check xrays - ? has spinal stenosis vs other?rec tyl 500mg 1-2 tabs up to 3x/daycont hep Muscle spa sm of cervical muscle of neck 7952203023 04 M62.828 3685386 rec warm compress, massager gun, stop using UE resistance bands - rather do isometrics /hep Pain of hip region 98955 002 M25.551 M25.552 506460 Chronic low back pain 27 5239846 M54.42 M54.41 G89.29 83391629 Essential hypertension 40450037 I10 elevated today, but is in pain - cont rpm - see below - pt states bp lately good at home, and [facility] Hypertensi on monitoring status 720705439 I10 [id number] Berry Dykes MD Main Office [address] [facility] [address] [place] [address] 07/16/2025 13:36:06 07/16/2025 14:26:16 Muscle spasm of cervical muscle of neck 6000771341 04 M62.723 0618927 rec warm compress, massager gun, stop using UE resistance bands - rather do isometrics /hep 9.25 - most likely has myofascial syndromere c massage/marc cedillo c-spine filmreview ed HEPrecentl y finished PT for back/hip pain - rec resumepend ing see pmr 07.22.25 - ? needs trigger pt injxns Neck pain 57370020 M54.2 182250 see above Myofascial pain syndrome of neck 257927988 M79.18 9715042 see abovetrial c prn m relaxer [id number] LUCY BRITT MD Main Office [address] [facility] [address] [facility], [place] [address] 10/06/2025 14:15:52 10/06/2025 14:44:29 Atrial fibrillation 13058027 I48.91 - diagnosed in 02/2022- pt is [...] mmHg.- no current bleeding risks Essential hypertension 37978271 I10 - slightly elevated today- BP today 142/84 and on repeat 140/80- [facility] BP at home average for September [...] vision. 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 0077623 M25.511 G89.29 840765 - bilateral but worse on the rigth- pt following with physiatry, last seen on 07/22/2025> pt was given steroid injection> she will reach back out for possible repeat steroid injection [id number] Nuris Guillen MD Main Office [address] [facility] [address] [facility] [place] [address] 10/14/2025 14:03:45 10/14/2025 14:59:35 Pain of hip region 14298463 M25.551 80790567 Health Concerns Section Related Observation LastModified by Organization Detai ls LastModified Time None Recorded Concern Status LastModified by Organization Details LastModified Time None Recorded Advance Directives Directive None Recorded Payers Insurance Date Sequence Insurance Name Policy Number Policy Ricketts Covered Member ID Ricketts Member ID Guarantor Name 10/14/2025 1 [employer] - MEDICARE ADVANTAGE PLAN (MEDICARE REPLACEMENT HMO) [id number] Krystal A Hazel Chavez [id number] Krystal Chavez Notes Date Note Type Note Provider Name and Address Organization Details Recorded Time 04/02/2025 text/html Medicare Annual Wellness VisitReported by PatientSocial/Behavior al HistoryFor physical activity, patient reportsdoes not exercise on a regular basis,decreased physical activity, andpoor physical condition. For diet and nutrition, patient reportshealthy diet(centrum, probiotic, vitamin d). For fracture risk, patient reportsno history of fractures.Mental Status:For depression risk, patient reportsnever feels sad, empty, or tearful,no loss of interest in activities,no significant changes in weight,no sleep disturbances or insomnia,no agitation,no loss of energy,no feelings of worthlessness or guilt,no thoughts of suicide,no history of depression, andno history of mood disorders. For orientation, patient reportsno disorientation to time,no disorientation to date, andno disorientation to place. For concentration and memory, patient reportsno decreased concentrating ability,no memory lapses or loss, anddoes not forget words. For speech/motor difficulties, patient reportsno speech difficulties,no difficulty expressing formulated concepts,no difficulty with fine manipulative tasks,no difficulty writing/copying,no slowed reaction time, anddoes not knock things over when trying to pick them up.Functional AbilityFor hearing, patient reportsloss of hearing: in both ears. For instrumental activities of daily living, patient reportsunable to manage money without assistance (pays her bills, daughter helps)but reportsable to do house work with limited or no assistance,able to grocery shop with limited or no assistance,able to manage medications with limited or no assistance,able to prepare meals with limited or no assistance, andable to use the phone with limited or no assistance. For vision, patient reportsno vision problems. For activities of daily living, patient reportsable to bathe with limited or no assistance,able to contol urination and bowels,able to dress with limited or no assistance,able to feed self with limited or no assistance,able to get out of chair or bed with limited or no assistance,able to groom with limited or no assistance, andable to toilet with limited or no assistance. For falls risk assessment, patient reportsno frequent falls while walking,no fall in the past year,no fall since last visit, andno dizziness/vertigo. For home safety, patient reportsno unsafe lisa hazzards,no unsafe stairs,no unsafe gas appliances,working smoke/co detectors,wears protective head gear for biking/high velocity,use of seatbelts,practicing 'safer sex',no vision or hearing loss while driving,no fire arms,has hand bars in the bathroom/shower, andgood lighting in the home. Generic HPI TemplateReported by Patient Medicare Nohemi Chavez is an 89 year old F who presents to complete their Annual Wellness Visit. Visit Type: Annual How would you rate your health? Good Have you been discharged from the hospital recently? NoHave you been to the emergency room or urgent care recently? NoDo you have any significant previous hospital stays, injuries, or treatment? No Home Safety:Pt recently passed. Living in assitive living facility.Is the tub or shower floor slippery and do you need support? No however patient has a non-slip self-stick abrasive strips on the floor of the showerDo you need some support when you get in and out of the tub or from the toilet? No however patient has installed sturdy grab bars in the shower and installed a grab bar next to the toiletDo you have any small rugs or runners that slide or bunch up when you push them with your foot? NoAre there papers, books, towels, shoes, magazines, boxes, blankets, or other objects on the floor? No The patient does not have a history of falls. Oral Health: every 6 monthsEye Health: every yearMotor Vehicle: Driving Do you wear a seatbelt when in a car? Yes Screening Tools:Were there any ADL or IADL deficiencies not linked to physical limitations? NoDuring the past 12 months, have you experienced confusion or memory loss that is happening more often or is getting worse? No Advance Directive: [facility] LUCY BRITT MD [address] [address], [place], [phone], [facility] 04/02/2025 16:07:55 06/25/2025 text/html Pt started with left leg pain for the past week,now has severe bilateral shoulder pain,pt is struggling to do even the simplest things like getting out of bed and dressing. Of note pt did some PT,but,feels worse. Tylenol does not help. had 10 PT sessions, doing hephad stable mri brain - reviewed report no lbp, left groin painno h/o back problems, back sx was doing arm exercises at [facility] c resistance bands Lenny Diaz PA-C [address] [address], [place], [address], [facility] 06/26/2025 11:50:59 07/16/2025 text/html SHOULDER PAIN SEE PT CASE Nakita (pts daughter) called stating Krystal has been dealing with shoulder pain for a couple weeks and she recently started taking steroids and after finishing them shes back to feeling that same pain. Nakita did mention that Krystal has an appointment with family physiatry on 07/22. reviewed last ov note on 06.25.25has been using tyl, moist heat Lenny Diaz PA-C [address] [address], [place], [address], [facility] 07/16/2025 14:27:08 10/06/2025 text/html Hypertension F/UReported by PatientHPIFor lifestyle, patient reportsnot exercising regularlybut reportslimiting/avoidi ng salt. For associated symptoms, patient reportsno dizziness,no lightheadedness,no chest pain,no shortness of breath,no palpitations,no edema, andno calf pain with exertion. For medications, patient reportstaking medications as directedandno side effects from medication. Krystal Chavez is a 89 year old F who presented to the clinic for follow-up on her chronic conditions. Patient has no complaints at this time. Patient presents with her daughter. LUCY BRITT MD [address] [address], [place], [phone], [facility] 10/06/2025 14:58:26 10/14/2025 text/html Hip(s)Reported b y PatientHPIFor associated symptoms, patient reportscatching/lockin gandbucklingbut reportsno weakness,no numbness,no tingling,no swelling,no redness,no warmth,no ecchymosis,no popping/clicking,no grinding,no instability,no radiation down leg,no drainage,no fever,no chills,no weight loss, andno change in bowel/bladder habits. For location, patient reportsright,anterior, medial, andgroin. For quality, patient reportsaching. For duration, patient reports2 days. For timing, patient reportsacuteandabrupt. For context, (woke up with pain 2 days ago.). For alleviating factors, (sitting, resting. tylenol and a heating pad helps a little.). For aggravating factors, (moving around).Here with daughter whom she allowed to be at visit. Nuris Guillen MD [address] [address], [place], [id number], [facility] 10/14/2025 21:48:31 OBGyn Episode No OBEpisode recorded.
== END 2025-10-22 15:28 | disposition home or self-care (01) ==
LOC: HO.HPHYS 14:07
PROVIDERS: PCP Student in an Organized Health Care Education/Training Program; Visit Provider Physician Assistant
DX: M19.011 Primary osteoarthritis, right shoulder (principal); M19.012 Primary osteoarthritis, left shoulder
CPT/HCPCS: 20610

== ENCOUNTER → 2025-10-22 14:07 | Outpatient (BNVA) | payer OTHER, SELFPAY | PROVIDERS: PCP Student in an Organized Health Care Education/Training Program; Visit Provider Physician Assistant | DX: M19.011 Primary osteoarthritis, right shoulder (principal); M19.012 Primary osteoarthritis, left shoulder | CPT/HCPCS: 20610; J2003; J3301 ==